=== PATIENT | female | born 1975 | race African-American/Black ===

== ENCOUNTER 2016-12-10 22:24 | Emergency (ER) | payer OTHER ==
[~2016-12-10] VITALS: Ht 157.5 cm; Wt 71.2 kg
[~2016-12-10 22:24] MED LIST: GING1CAP PO
[2016-12-10 22:26] VITALS: TEMP 37; Ht 157.5 cm; Wt 71.2 kg
[2016-12-10] MEDS ORDERED: PROCHLORPERAZINE 5 MG/ML 2 ML VIAL IV STA (22:43)
[2016-12-10] MEDS ORDERED: LORAZEPAM 2 MG/ML 1 ML VIAL IV STA (22:43)
[2016-12-10] MEDS ORDERED: DiphenhydrAMINE HCL 50 MG/ML VIAL IV STA (22:43)
[2016-12-10] MEDS ORDERED: KETOROLAC TROMETHAMINE 30 MG/ML VIAL IV STA (22:43)
[2016-12-10] MEDS ORDERED: HYDROXYCUT PO (22:45)
[2016-12-10] MEDS ORDERED: SODIUM CHLORIDE 0.9% 1000ML 1,000 ML IV ONE (22:45)
[2016-12-10 23:06] LABS: BASO % 0.1 %; BASO ABS # 0.02 K/uL (0-0.2); COMPLETE YES; EOS % 1.2 %; HEMATOCRIT 38.2 % (37-47); IG% 0.3 %; LYMPH % 19.2 %; MEAN CELL VOLUME 83.4 fL (80-100); MEAN CORPUSCULAR HEMOGLOBIN 29.3 pg (25-34); MEAN CORPUSCULAR HGB CONC 35.1 g/dl (32-36); MEAN PLATELET VOLUME 10.3 fL (7.4-10.4); NEUT % 72.2 %; PLATELET COUNT 230 K/uL (130-400); RED BLOOD COUNT 4.58 M/uL (4.2-5.4); WHITE BLOOD COUNT 13.57 K/uL (4.8-10.8)
[2016-12-10 23:25] LABS: BUN/CREATININE RATIO 36.7 (10-20); CALCIUM 8.5 mg/dl (8.5-10.1); CREATININE 0.69 mg/dl (0.60-1.20); POTASSIUM 3.6 mmol/L (3.5-5.1)
[2016-12-10 23:32] LABS: URINE APPEARANCE CLEAR (CLEAR); URINE BILIRUBIN NEG (NEG); URINE COLOR YELLOW; URINE EPITHELIAL CELL AUTO >30 /lpf (0-5); URINE NITRITE NEG (NEG); URINE PH 5.5 (4.5-7.5); URINE SPECIFIC GRAVITY 1.019 (1.000-1.030); UROBILINOGEN NEG (NEG); ZZUR CULT IF INDIC CLEAN CATCH YES
[2016-12-10 23:36] LABS: MANUAL MICROSCOPIC REQUIRED? NO; REVIEW REQ? NO
[2016-12-11] MEDS ORDERED: AMOX875T PO (00:52)
[2016-12-11] MEDS ORDERED: AMOXICIL/CLAVU 875MG HOME PACK PO ONE (01:00)
[2016-12-11 01:06] VITALS: BP 114/64; PULSE 70; O2SAT 99
--- NOTE | 2016-12-11 02:45 | EMERGENCY ROOM VISIT NOTE ---
History First contact with patient: 22:34 Chief Complaint: HEADACHE Stated Complaint: HEADACHES, BODY ACHES FOR ABOUT A WEEK History of Present Illness The patient is a 41 year old female who presents to the Emergency Room with complaints of headache, left-sided facial pain, and body aches for the past 7 days. The patient has not had fever or chills. She does not have a history of migraine, and states that her symptoms will slightly improved with over-the- counter ibuprofen and Tylenol. She does not have neck or chest pain. No difficulty breathing or rash. She considers herself usually healthy but rates her current discomfort an 8/10. Review of Systems More than 10 systems were reviewed and otherwise negative with the exception of history of present illness. Past Medical/Surgical History No chronic medical disease Family History No pertinent family history Social History Smoking Status: Never Smoker Housing Status: lives with family Current/Historical Medications Scheduled Amoxicillin & Pot Clavulanate (Augmentin 875-125 mg), 1 TAB PO BID Keeley (Zingiber Officinalis) (Keeley), 1 TAB PO QAM [Hydroxycut], 1 DOSE PO UD Allergies Coded Allergies: No Known Allergies (Unverified , 12/02/16) Physical Exam Vital Signs Date Time Temp Pulse Resp B/P Pulse Ox O2 Delivery O2 Flow Rate FiO2 12/11/16 01:06 70 20 114/64 99 12/11/16 00:14 96 18 122/72 99 Room Air 12/10/16 23:16 66 18 104/80 97 Room Air 12/10/16 22:26 37.0 74 18 119/76 98 Room Air Pain Rating (0-10): 0 Physical Exam VITALS: Vitals are noted on the nurse's note and reviewed by myself. Vital signs stable. GENERAL: Well-developed, well-nourished, female, who is in no acute distress and resting comfortably. Patient is cooperative with the examination. HEAD: Normocephalic atraumatic. EARS: External ear normal. External auditory canals clear, tympanic membranes pearly wilkerson without erythema or effusion bilaterally. EYES: Pupils equal round and reactive to light and accommodation. Conjunctivae without injection, sclerae without icterus. Extraocular movements intact. NOSE: Patent, turbinates without inflammation or discharge. MOUTH: Mucous membranes moist. Tonsils are not enlarged. Pharynx without erythema, blood, or exudate. Uvula midline. Airway patent. NECK: Supple without nuchal rigidity. No lymphadenopathy. No thyromegaly. Cervical spine is nontender. No meningismus. HEART: Regular rate and rhythm without murmurs gallops or rubs. LUNGS: Clear to auscultation bilaterally without wheezes, rales or rhonchi. No retractions or accessory muscle use. ABDOMEN: Positive normal bowel sounds x 4. Soft, nontender, without masses or organomegaly. No guarding or rebound tenderness. MUSCULOSKELETAL: No muscle atrophy, erythema, or edema noted. Full range of motion without joint tenderness in all extremities. NEURO: Patient was alert and oriented to person place and time. CN II through XII grossly intact. Medical Decision & Procedures ER Provider Diagnostic Interpretation: Preliminary Findings Only See Final Report For Complete Findings CT HEAD: No ICH, mass effect, or midline shift. Wilkerson-white differentiation preserved. No evidence of skull fracture. Bilateral ethmoid and right maxillary sinusitis. Clear mastoid air cells. Laboratory Results 12/10/16 22:50 Red Blood Count 4.58, Mean Corpuscular Volume 83.4, Mean Corpuscular Hemoglobin 29.3, Mean Corpuscular Hemoglobin Concent 35.1, Mean Platelet Volume 10.3, Neutrophils (%) (Auto) 72.2, Lymphocytes (%) (Auto) 19.2, Monocytes (%) (Auto) 7.0, Eosinophils (%) (Auto) 1.2, Basophils (%) (Auto) 0.1, Neutrophils # (Auto) 9.80, Lymphocytes # (Auto) 2.60, Monocytes # (Auto) 0.95, Eosinophils # (Auto) 0.16, Basophils # (Auto) 0.02 12/10/16 22:50 Test 12/10/16 22:50 12/10/16 23:19 White Blood Count 13.57 K/uL (4.8-10.8) Red Blood Count 4.58 M/uL (4.2-5.4) Hemoglobin 13.4 g/dL (12.0-16.0) Hematocrit 38.2 % (37-47) Mean Corpuscular Volume 83.4 fL (80-100) Mean Corpuscular Hemoglobin 29.3 pg (25-34) Mean Corpuscular Hemoglobin Concent 35.1 g/dl (32-36) Platelet Count 230 K/uL (130-400) Mean Platelet Volume 10.3 fL (7.4-10.4) Neutrophils (%) (Auto) 72.2 % Lymphocytes (%) (Auto) 19.2 % Monocytes (%) (Auto) 7.0 % Eosinophils (%) (Auto) 1.2 % Basophils (%) (Auto) 0.1 % Neutrophils # (Auto) 9.80 K/uL (1.4-6.5) Lymphocytes # (Auto) 2.60 K/uL (1.2-3.4) Monocytes # (Auto) 0.95 K/uL (0.11-0.59) Eosinophils # (Auto) 0.16 K/uL (0-0.5) Basophils # (Auto) 0.02 K/uL (0-0.2) RDW Standard Deviation 40.4 fL (36.4-46.3) RDW Coefficient of Variation 13.4 % (11.5-14.5) Immature Granulocyte % (Auto) 0.3 % Immature Granulocyte # (Auto) 0.04 K/uL (0.00-0.02) Anion Gap 9.0 mmol/L (3-11) Est Creatinine Clear Calc Drug Dose 98.2 ml/min Estimated GFR () 124.4 Estimated GFR (Non- 107.4 BUN/Creatinine Ratio 36.7 (10-20) Calcium Level 8.5 mg/dl (8.5-10.1) Total Bilirubin 0.6 mg/dl (0.2-1) Aspartate Amino Transf (AST/SGOT) 18 U/L (15-37) Alanine Aminotransferase (ALT/SGPT) 31 U/L (12-78) Alkaline Phosphatase 64 U/L (45-117) Total Protein 7.7 gm/dl (6.4-8.2) Albumin 3.8 gm/dl (3.4-5.0) Globulin 3.9 gm/dl (2.5-4.0) Albumin/Globulin Ratio 1.0 (0.9-2) Urine Color YELLOW Urine Appearance CLEAR (CLEAR) Urine pH 5.5 (4.5-7.5) Urine Specific Egnar 1.019 (1.000-1.030) Urine Protein NEG (NEG) Urine Glucose (UA) NEG (NEG) Urine Ketones NEG (NEG) Urine Occult Blood NEG (NEG) Urine Nitrite NEG (NEG) Urine Bilirubin NEG (NEG) Urine Urobilinogen NEG (NEG) Urine Leukocyte Esterase SMALL (NEG) Urine WBC (Auto) 10-30 /hpf (0-5) Urine RBC (Auto) 0-4 /hpf (0-4) Urine Hyaline Casts (Auto) 1-5 /lpf (0-5) Urine Epithelial Cells (Auto) >30 /lpf (0-5) Urine Bacteria (Auto) 1+ (NEG) Urine Test NEG (NEG) Medications Administered Medications (Trade) Dose Ordered Sig/Fox Route Start Time Stop Time Status Last Admin Dose Admin Sodium Chloride (Nss 1000ml) 1,000 ml @ 999 mls/hr Q1H1M ONCE IV 12/10/16 22:45 12/10/16 23:45 DC 12/10/16 23:09 999 MLS/HR Diphenhydramine HCl (Benadryl Inj) 25 mg NOW STAT IV 12/10/16 22:43 12/10/16 22:45 DC 12/10/16 23:10 25 MG Prochlorperazine Edisylate (Compazine Inj) 5 mg NOW STAT IV 12/10/16 22:43 12/10/16 22:45 DC 12/10/16 23:14 5 MG Ketorolac Tromethamine (Toradol Inj) 30 mg NOW STAT IV 12/10/16 22:43 12/10/16 22:45 DC 12/10/16 23:11 30 MG Lorazepam (Ativan Inj) 0.5 mg NOW STAT IV 12/10/16 22:43 12/10/16 22:45 DC 12/10/16 23:12 0.5 MG Amoxicillin/ Clavulanate Potassium (Augmentin 875MG Home Pack) 1 homepack UD ONCE PO 12/11/16 01:00 12/11/16 01:01 DC 12/11/16 01:03 1 HOMEPACK ED Course Physical exam and history were performed. Nursing notes and EMR were reviewed. Patient appears to have headache symptoms for the past week. The patient does not appear toxic on exam. She is without evidence of meningitis or encephalitis. She has not had previous imaging of her head, and is not a chronic migraine patient. IV access was established and labs were obtained. The patient was medicated and hydrated as above. CT scan of the head was performed. The patient blood work is as above and was reviewed. She does have a very slightly elevated white blood cell count. She is not grossly anemic or with significant electrolyte imbalance. Her CT scan does not show evidence of acute intracranial hemorrhage, but does reveal a sinusitis, which is felt to be the likely cause of her symptoms. Overall the patient had significant improvement of her symptoms after the above medications. She will be started on Augmentin for her sinus infection. I recommended the patient follow with her primary care physician this week for further care and management. She was otherwise invited back to the ER with any new, worsening, or concerning symptoms. The chart was completed utilizing [employer] Speech Voice Recognition Software. Grammatical errors, random word insertions, pronoun errors, and incomplete sentences are an occasional consequence of this system due to software limitations, ambient noise, and hardware issues. Any formal questions or concerns about the content, text, or information contained within the body of this dictation should be directly addressed to the provider for clarification. . Medical Decision The differential diagnosis includes, but is not limited to: acute intracranial bleed, meningitis, encephalitis, mass or mass effect, sinusitis, infection, tumor, headache, temporal arteritis and carbon monoxide exposure, and migraine. Impression Primary Impression: Acute sinusitis Additional Impression: Headache Departure Information Dispostion Home / Self-Care Condition GOOD Prescriptions Amoxicillin & Pot Clavulanate (Augmentin 875-125 mg) 1 Tab Tab 1 TAB PO BID for 9 Days, #18 TAB Prov: Kevin Ramos PA-C 12/11/16 Forms HOME CARE DOCUMENTATION FORM, IMPORTANT VISIT INFORMATION Patient Instructions My [facility] Additional Instructions You were seen and evaluated today on an emergency basis only. This is not a substitute for, or an effort to provide, complete comprehensive medical care. It is not possible to recognize and treat all injuries or illnesses in a single emergency department visit. For this reason it is recommended that you followup with your primary care physician this week for ongoing care and evaluation. For baseline pain relief you may alternate ibuprofen and acetaminophen every 4 hours for pain control. Take 600 mg ibuprofen (Advil) and then 4 hours later take 1000 mg acetaminophen (Tylenol). Do not take more than 3000 mg acetaminophen in a single day. Amoxicillin Clavulanate (Augmentin) 875mg: Take one pill twice daily for 10 total days for your infection. All antibiotics can cause diarrhea. If this occurs and you feel worse or it does not resolve in 1-2 days follow up with your doctor or return to the Emergency Department as this could be signs of serious underlying problems. Any medication can cause an allergic reaction, stop the pills immediately and return to the ER for rash, hives, breathing difficulties, or swelling. You are welcome to return to the emergency department anytime with new, worsening, or concerning symptoms. Problem Qualifiers
--- NOTE | 2016-12-11 06:35 | DIAGNOSTIC IMAGING REPORT ---
HEAD CT NONCONTRAST CT DOSE: 537.48 mGy.cm HISTORY: Headache Migraine TECHNIQUE: Multiaxial CT images of the head were performed without the use of intravenous contrast. Comparison: None. Findings: Right maxillary sinusitis The calvarium and skull base are intact. The ventricles and sulci are within normal limits. There is no mass, hematoma, midline shift, or acute infarct. Impression: No acute intracranial abnormality. Right maxillary sinusitis Electronically signed by: Dashawn Clements M.D. 12/11/2016 6:33 AM Dictated Date/Time: 12/11/2016 6:33 AM
[2016-12-23] MEDS ORDERED: OXYC-57 PO (08:14)
== END 2016-12-11 01:07 | disposition home or self-care (01) ==
LOC: C.EDB 22:26 → C.EDA 12-11 01:07
DX: J01.90 Acute sinusitis, unspecified (principal); R51 Headache

== ENCOUNTER → 2016-12-23 | Day surgery (SDC) | payer OTHER ==
[2016-12-02 10:37] VITALS: Ht 157.5 cm; Wt 68.2 kg
[2016-12-20 14:43] LABS: BASO % 0.2 %; BASO ABS # 0.03 K/uL (0-0.2); COMPLETE YES; EOS % 1.8 %; HEMATOCRIT 40.3 % (37-47); IG% 0.3 %; LYMPH % 19.7 %; LYMPH ABS # 2.56 K/uL (1.2-3.4); MEAN CORPUSCULAR HEMOGLOBIN 29.2 pg (25-34); MEAN CORPUSCULAR HGB CONC 34.7 g/dl (32-36); MEAN PLATELET VOLUME 10.2 fL (7.4-10.4); MONO % 4.6 %; NEUT % 73.4 %; PLATELET COUNT 277 K/uL (130-400); WHITE BLOOD COUNT 13.01 K/uL (4.8-10.8)
[~2016-12-23] VITALS: Ht 157.5 cm; Wt 68.2 kg
[~2016-12-23] MED LIST changes: +AMOX875T PO; +ATROPINE SULFATE 0.1 MG/ML 5ML SYR IV PRN; +BUPIVACAINE 0.25% 2.5MG/ML PF 10 ML VIAL INFIL ONE; +DEXAMETHASONE SOD INJ 4 MG/ML VIAL IV PRN; +DEXAMETHASONE SOD INJ 4 MG/ML VIAL ONE; +EpHEDrine SULFATE INJ 50 MG/ML AMP IV PRN; +FENTANYL CITRATE INJ 50 MCG/1 ML 2 ML VIAL IV PRN; +FENTANYL CITRATE INJ 50 MCG/1 ML 2 ML VIAL ONE; +GLYCOPYRROLATE INJ 0.2 MG/ML VIAL ONE; +HYDROXYCUT PO; +IBUPROFEN 600 MG TAB PO PRN; +KETOROLAC TROMETHAMINE 30 MG/ML VIAL IV. PRN; +KETOROLAC TROMETHAMINE 30 MG/ML VIAL ONE; +LABETALOL HCL IV 5 MG/ML 20ML IV PRN; +LACTATED RINGER'S 1000ML 1,000 ML IV SCH; +LIDOCAINE HCL 2% 2 ML VIAL (20MG/ML) ONE; +METOCLOPRAMIDE HCL INJ 5 MG/ML 2 ML VIAL IV PRN; +MIDAZOLAM HCL 1 MG/ML 2ML VIAL ONE; +MoRPHine SULFATE 10 MG/ML CARP/VIAL IV PRN; +NEOSTIGMINE METHYLSULFATE 5 MG/5 ML SYR ONE; +ONDANSETRON INJ 2 MG/ML 2 ML VIAL IV PRN; +ONDANSETRON INJ 2 MG/ML 2 ML VIAL ONE; +OXYC-57 PO; +OXYCODONE/ACETAMINOPHEN 5-325 TAB PO PRN; +PHENYLEPHRINE 100MCG/ML 5ML SYR IV PRN; +PROMETHAZINE HCL INJ 25 MG in SODIUM CHLORIDE 0.9% 50ML 50 ML IV PRN; +PROPOFOL IV EMULSION 10 MG/ML 20 ML VIAL IV ONE; +ROCURONIUM BROMIDE 10 MG/ML 5 ML VIAL ONE; +SODIUM CHLORIDE 0.9% 1000ML 1,000 ML IV SCH
--- NOTE | 2016-12-23 06:57 | History & Physical Bridge - SC ---
H&P Re-Evaluation Bridge Note: I have examined the patient, reviewed the History & Physical and in the interval since the performance of the History & Physical I have noted the following changes of clinical significance: No changes noted
--- NOTE | 2016-12-23 08:11 | [facility] Post Operative Brief Note ---
Immediate Operative Summary Operative Date Dec 23, 2016. Pre-Operative Diagnosis Desires sterilization, h/o x4 Post-Operative Diagnosis same Procedure(s) Performed [facility] Surgeon Dr Ding Outpatient Coder Surgeon(s) 0 Estimated Blood Loss 5 ml Findings Normal appearing uterus, tubes, ovaries. Omental-peritoneal adhesive disease. Appendix not easily visualized. Due to adhesive disease, liver/gallbladder not visualized. Specimens 0 Drains jensen, clear yellow Complication(s) None Disposition Recovery Room / PACU
--- NOTE | 2016-12-23 08:16 | Discharge Instructions-SurgCtr ---
Discharge Instructions Date of Service Dec 23, 2016. Visit Reason for Visit: Contraceptive Management Discharge Discharge Diagnosis / Problem: s/p laparoscopic tubal ligation Discharge Goals Goal(s): Therapeutic intervention Activity Recommendations Activity Limitations: per Instructions/Follow-up section Anesthesia . Post Anesthesia Instructions: If you have had General Anesthesia or IV Sedation: * Do not drive today. * Resume driving when surgeon permits. * Do not make important decisions or sign legal documents today. * Call surgeon for: 1. Temperature elevations greater than 101 degrees F. 2. Uncontrollable pain. 3. Excessive bleeding. 4. Persistent nausea and vomiting. 5. Medication intolerance (nausea, vomiting or rash). * For nausea and vomiting use only clear liquids such as: tea, soda, bouillon until nausea subsides, then gradually increase diet as tolerated. * If you have any concerns or questions, call your surgeon's office. If physician is unavailable and it is an emergency, call 911 or go to the nearest emergency room. . Instructions / Follow-Up Instructions / Follow-Up ACTIVITY RECOMMENDATIONS: * Rest the first 2-3 days. You should be back to your normal activity levels by day 3. * No heavy lifting for 2 weeks. * No intercourse, tampons or douching for 1-2 weeks. * You may shower the next day. * Do not drive anytime that you are taking narcotic pain medicines. RETURN TO SCHOOL/WORK: * May return to school or work after 2-3 days. DIET: Nausea may occur in the immediate post-operative period. If so, take clear liquids such as tea, bouillon, apple juice until all nausea has subsided, then resume usual diet. MEDICATIONS: Resume previous medications unless instructed otherwise by your surgeon. Ibuprofen 200mg 2-3 tablets every 4-6 hours as needed -- OR -- Aleve 2 tablets every 8-12 hours as needed for post-operative discomfort Medications are over the counter. Tylenol may be used if above medications are contraindicated or not preferred. Medication should be taken with food or milk. Do not take on an empty stomach. SPECIAL CARE INSTRUCTIONS: * Check temperature twice daily for one week. report any elevation over 101 degrees. * You may experience some vagina spotting and/or bleeding. This is normal for 1 -2 weeks and should not be heavier than a normal period. If it is unusual in amount, call your physician. * Post-operative discomfort may consist of a sore throat, a "bloated" feeling and pain in the shoulders. these are normal symptoms, which usually only last for 2-3 days. * Remove band-aids tomorrow and shower. There is no need to replace band-aids unless there is drainage or discomfort. FOLLOW UP VISIT: Call your doctor's office for a post-operative 2 week visit if not already scheduled. Diet Recommendations Home Diet: resume previous diet Procedures Procedures Performed: Laparoscopic Tubal Ligation [employer] Tubal ligation system Pending Studies Studies pending at discharge: no Medical Emergencies . Who to Call and When: Medical Emergencies: If at any time you feel your situation is an emergency, please call 911 immediately. . Non-Emergent Contact Non-Emergency issues call your: Primary Care Provider, Logistics Administrator . . "Provider Documentation" section prepared by Karen Ding. PA Drug Monitoring Program Search Results: patient reviewed within database
--- NOTE | 2016-12-23 08:54 | OPERATIVE REPORT ---
DATE OF OPERATION: 12/23/2016 PREOPERATIVE DIAGNOSIS: Desires sterilization, history of section x4. POSTOPERATIVE DIAGNOSIS: Same. PROCEDURE PERFORMED: Laparoscopic tubal ligation with Filshie clips. SURGEON: Dr. Ding. HOSPITAL SOCIAL WORKER: None. ESTIMATED BLOOD LOSS: 5 mL FINDINGS: Normal appearing uterus, tubes, and ovaries. Omental peritoneal adhesive disease noted. Appendix was not easily visualized due to adhesive disease. Liver and gallbladder were not visualized. SPECIMENS: None. DRAINS: Turcios, clear yellow. COMPLICATIONS: None. DISPOSITION: Stable and good to recovery room in PACU. INDICATIONS FOR PROCEDURE: The patient is a 41-year-old G7, P5-0-2-5 with history of section x2, who desires permanent sterilization. She elected tubal ligation as her method of sterilization. DESCRIPTION OF PROCEDURE: The patient was seen in the preoperative holding area, where risks, benefits, alternatives were reviewed and all questions were answered to patient's satisfaction. She had previously signed informed consent in the office under no duress and this was reviewed at the time of preoperative care. She elected to proceed with surgery. She was taken to the operating room where general anesthesia was administered. She was prepared and draped in the usual sterile fashion with feet in [facility]. The timeout was called and confirmed. First, a Turcios catheter was placed in the bladder with clear yellow urine return. Next, a weighted speculum was placed in the vagina and cervix was visualized and the anterior lip was grasped with a single tooth tenaculum. An acorn uterine manipulator was placed. Gloves were changed and attention was then turned to the abdomen, where an infraumbilical incision was made and carried down to the layer of the fascia with blunt dissection. The fascia was grasped with Asif clamps x2, elevated and the fascial incision was made with a scalpel. The omentum was visualized through the incision. The Diana trocar was placed and the camera was placed to ensure intra-abdominal placement and the abdomen was insufflated with gas. The abdomen was visualized with the above noted findings. An 8-mm laparoscopic trocar was placed in the infraumbilical location under direct visualization. The left fallopian tube was visualized, the fimbriae were noted to ensure correct anatomical placement and the Filshie clip was placed on the isthmic region of the tube. The same procedure was performed on the right fallopian tube, ensuring that fimbriae were noted to ensure placement on the fallopian tubes. Pictures were taken. The trocar sites were removed under direct visualization. Fascia was closed with 0 Vicryl and the skin was reapproximated using 4-0 Vicryl in a subcuticular fashion. The patient tolerated the procedure well. All instruments were removed from the vagina. The patient was then taken to the recovery room in stable and good condition. I attest to the content of the Intraoperative Record and any orders documented therein. Any exceptio ns are noted below.
[2016-12-23 09:10] VITALS: TEMP 36.5
--- NOTE | 2016-12-23 09:42 | Anesthesia Progress Nt - [facility] ---
Anesthesia Post Op Note Date & Time Dec 23, 2016 at 09:42 Vital Signs Pain Intensity: 6.0 Vital Signs Past 12 Hours Date Time Temp Pulse Resp B/P Pulse Ox O2 Delivery O2 Flow Rate FiO2 12/23/16 09:10 36.5 49 16 139/81 100 Room Air 12/23/16 09:05 132/81 12/23/16 09:03 49 18 97 12/23/16 09:03 50 18 12/23/16 09:00 130/93 12/23/16 08:58 48 16 97 12/23/16 08:58 48 16 12/23/16 08:57 53 13 12/23/16 08:57 53 13 97 12/23/16 08:56 63 16 97 12/23/16 08:56 61 16 12/23/16 08:55 129/80 12/23/16 08:54 36.6 98 Room Air 12/23/16 08:51 56 17 12/23/16 08:51 55 17 100 12/23/16 08:50 149/94 12/23/16 08:46 56 16 12/23/16 08:46 56 16 100 12/23/16 08:45 141/90 12/23/16 08:41 62 18 12/23/16 08:41 61 18 100 12/23/16 08:40 133/92 12/23/16 08:36 59 16 100 12/23/16 08:36 59 16 12/23/16 08:35 149/97 12/23/16 08:31 72 12 12/23/16 08:31 69 12 100 12/23/16 08:30 134/97 12/23/16 08:26 98 18 100 12/23/16 08:26 98 18 12/23/16 08:25 133/83 12/23/16 08:21 94 5 142/90 100 12/23/16 08:21 36.2 92 18 142/90 99 Mask 6 12/23/16 08:21 94 5 12/23/16 06:34 37.1 67 18 115/75 97 Room Air Notes Mental Status: alert / awake / arousable, participated in evaluation Pt Amnestic to Procedure: Yes Nausea / Vomiting: adequately controlled Pain: adequately controlled Airway Patency, RR, SpO2: stable & adequate BP & HR: stable & adequate Hydration State: stable & adequate Anesthetic Complications: no major complications apparent
[2016-12-23 10:14] VITALS: BP 103/68; PULSE 64; O2SAT 97
== END | disposition home or self-care (01) ==
LOC: X.SURG 06:18
PROVIDERS: ATTEND Obstetrics & Gynecology
DX: Z30.2 Encounter for sterilization (principal); Z87.891 Personal history of nicotine dependence

== ENCOUNTER → 2017-06-18 | Outpatient (CLI) | payer OTHER ==
[~2017-06-18] MED LIST changes: -ATROPINE SULFATE 0.1 MG/ML 5ML SYR IV PRN; -BUPIVACAINE 0.25% 2.5MG/ML PF 10 ML VIAL INFIL ONE; -DEXAMETHASONE SOD INJ 4 MG/ML VIAL IV PRN; -DEXAMETHASONE SOD INJ 4 MG/ML VIAL ONE; -EpHEDrine SULFATE INJ 50 MG/ML AMP IV PRN; -FENTANYL CITRATE INJ 50 MCG/1 ML 2 ML VIAL IV PRN; -FENTANYL CITRATE INJ 50 MCG/1 ML 2 ML VIAL ONE; -GLYCOPYRROLATE INJ 0.2 MG/ML VIAL ONE; -IBUPROFEN 600 MG TAB PO PRN; -KETOROLAC TROMETHAMINE 30 MG/ML VIAL IV. PRN; -KETOROLAC TROMETHAMINE 30 MG/ML VIAL ONE; -LABETALOL HCL IV 5 MG/ML 20ML IV PRN; -LACTATED RINGER'S 1000ML 1,000 ML IV SCH; -LIDOCAINE HCL 2% 2 ML VIAL (20MG/ML) ONE; -METOCLOPRAMIDE HCL INJ 5 MG/ML 2 ML VIAL IV PRN; -MIDAZOLAM HCL 1 MG/ML 2ML VIAL ONE; -MoRPHine SULFATE 10 MG/ML CARP/VIAL IV PRN; -NEOSTIGMINE METHYLSULFATE 5 MG/5 ML SYR ONE; -ONDANSETRON INJ 2 MG/ML 2 ML VIAL IV PRN; -ONDANSETRON INJ 2 MG/ML 2 ML VIAL ONE; -OXYCODONE/ACETAMINOPHEN 5-325 TAB PO PRN; -PHENYLEPHRINE 100MCG/ML 5ML SYR IV PRN; -PROMETHAZINE HCL INJ 25 MG in SODIUM CHLORIDE 0.9% 50ML 50 ML IV PRN; -PROPOFOL IV EMULSION 10 MG/ML 20 ML VIAL IV ONE; -ROCURONIUM BROMIDE 10 MG/ML 5 ML VIAL ONE; -SODIUM CHLORIDE 0.9% 1000ML 1,000 ML IV SCH
[2017-06-18 10:14] LABS: HEMATOCRIT 41.8 % (37-47); MEAN CELL VOLUME 86.9 fL (80-100); MEAN CORPUSCULAR HEMOGLOBIN 29.7 pg (25-34); MEAN CORPUSCULAR HGB CONC 34.2 g/dl (32-36); MEAN PLATELET VOLUME 10.5 fL (7.4-10.4); PLATELET COUNT 205 K/uL (130-400); RED BLOOD COUNT 4.81 M/uL (4.2-5.4)
[2017-06-18 10:44] LABS: BLOOD UREA NITROGEN 16 mg/dl (7-18); BUN/CREATININE RATIO 21.8 (10-20); CALCIUM 8.9 mg/dl (8.5-10.1); CARBON DIOXIDE 24 mmol/L (21-32); CHLORIDE 109 mmol/L (98-107); CREATININE 0.71 mg/dl (0.60-1.20); GLUCOSE 75 mg/dl (70-99); POTASSIUM 3.9 mmol/L (3.5-5.1); SODIUM 140 mmol/L (136-145)
[2017-06-18 10:51] LABS: INSULIN FASTING 9.7 mU/L (3-25)
[2017-06-18 11:12] LABS: ESTIMATED AVERAGE GLUCOSE 100 mg/dl; HA1C FLAG Normal (Normal)
== END | disposition home or self-care (01) ==
LOC: C.LAB1850 09:01
PROVIDERS: ATTEND Family Medicine
DX: R53.83 Other fatigue (principal); E16.2 Hypoglycemia, unspecified; G56.02 Carpal tunnel syndrome, left upper limb

== ENCOUNTER 2017-06-28 18:23 | Emergency (ER) | payer OTHER ==
[~2017-06-28] VITALS: Ht 157.5 cm; Wt 75.6 kg
[~2017-06-28 18:23] MED LIST changes: -AMOX875T PO
[2017-06-28 18:26] VITALS: TEMP 36.9; Ht 157.5 cm; Wt 75.6 kg
[2017-06-28] MEDS ORDERED: BENZONATATE 100MG CAP PO ONE (18:45)
--- NOTE | 2017-06-28 19:16 | DIAGNOSTIC IMAGING REPORT ---
CHEST 2 VIEWS ROUTINE HISTORY: 42 years-old Female COUGH acute cough with fever COMPARISON: None available TECHNIQUE: Frontal and lateral views of the chest FINDINGS: Cardiomediastinal and hilar silhouettes are within normal limits. No pneumothorax, pleural effusion, focal airspace consolidation or overt pulmonary edema. Bones of the chest are grossly intact. Upper abdomen is unremarkable. IMPRESSION: No acute cardiopulmonary process. The above report was generated using voice recognition software. It may contain grammatical, syntax or spelling errors. Electronically signed by: Tate Hermosillo M.D. 06/28/2017 7:15 PM Dictated Date/Time: 06/28/2017 7:14 PM
[2017-06-28] MEDS ORDERED: AMOX875T PO (19:38)
[2017-06-28] MEDS ORDERED: AMOXICILLIN/CLAVULANATE TAB 875 MG TAB PO ONE (19:45)
[2017-06-28 19:50] VITALS: BP 106/69; PULSE 74; O2SAT 98
--- NOTE | 2017-06-28 20:25 | EMERGENCY ROOM VISIT NOTE ---
History Report prepared by Luca: Sasha Kelley Under the Supervision of: Dr. Horacio Blanc D.O. First contact with patient: 18:30 Chief Complaint: HEADACHE Stated Complaint: BODY ACHE, HEADACHE, NASAL CONGESTION History of Present Illness The patient is a 42 year old female who presents to the Emergency Room with complaints of a constant illness beginning 4 days ago. The patient states that 4 days ago she developed a cough a runny nose and notes that she has had production of white phlegm. She reports that today she started having a sharp headache. She complains of body aches, ear pain, and congestion and notes that she works at the [employer] and may have had sick contacts. The patient denies any fever, abdominal pain, nausea, vomiting, and diarrhea. Source of History: patient Onset: 4 days ago Position: other (global) Quality: other (illness) Timing: constant Associated Symptoms: No fevers, No nausea, No vomiting, No abdominal pain, No diarrhea Note: She complains of body aches, ear pain, and congestion. Review of Systems See HPI for pertinent positives & negatives. A total of 10 systems reviewed and were otherwise negative. Past Medical & Surgical Medical Problems: (1) Headache Family History No pertinent family history stated. Social History Smoking Status: Never Smoker Housing Status: lives with family Current/Historical Medications Scheduled Amoxicillin & Pot Clavulanate (Augmentin 875-125 mg), 875 MG PO BID Allergies Coded Allergies: No Known Allergies (Unverified , 12/23/16) Physical Exam Vital Signs Date Time Temp Pulse Resp B/P (MAP) Pulse Ox O2 Delivery O2 Flow Rate FiO2 06/28/17 19:50 74 16 106/69 98 06/28/17 18:26 36.9 71 18 113/78 98 Room Air Physical Exam GENERAL: sitting up in bed, alert, well appearing, well nourished, no distress, non-toxic EYE EXAM: normal conjunctiva, PERRL and EOM's intact OROPHARYNX: no exudate, no erythema, lips, buccal mucosa, and tongue normal and mucous membranes are moist EARS: TMs clear bilaterally NOSE: Clear rhinorrhea bilaterally NECK: supple, no nuchal rigidity, no adenopathy, non-tender, negative Brudzinski LUNGS: Clear to auscultation. Normal chest wall mechanics. Dry nonproductive cough HEART: no murmurs, S1 normal and S2 normal ABDOMEN: abdomen soft, non-tender, normo-active bowel sounds, no masses, no rebound or guarding. BACK: Back is symmetrical on inspection and there is no deformity, no midline tenderness, no CVA tenderness. SKIN: no rashes and no bruising UPPER EXTREMITIES: upper extremities are grossly normal. LOWER EXTREMITIES: No pitting edema. NEURO EXAM: Normal sensorium, cranial nerves II-XII grossly intact, normal speech, no gross weakness of arms, no gross weakness of legs. Ambulates without difficulty Medical Decision & Procedures ER Provider Diagnostic Interpretation: Radiology results as stated below per my review and the radiologist's interpretation: CHEST 2 VIEWS ROUTINE FINDINGS: Cardiomediastinal and hilar silhouettes are within normal limits. No pneumothorax, pleural effusion, focal airspace consolidation or overt pulmonary edema. Bones of the chest are grossly intact. Upper abdomen is unremarkable. IMPRESSION: No acute cardiopulmonary process. The above report was generated using voice recognition software. It may contain grammatical, syntax or spelling errors. Electronically signed by: Tate Hermosillo M.D. 06/28/2017 7:15 PM Dictated Date/Time: 06/28/2017 7:14 PM Medications Administered Medications (Trade) Dose Ordered Sig/Fox Route Start Time Stop Time Status Last Admin Dose Admin Benzonatate (Tessalon Perles Cap) 100 mg NOW ONCE PO 06/28/17 18:45 06/28/17 18:46 DC 06/28/17 18:51 100 MG Amoxicillin/ Clavulanate Potassium (Augmentin Tab) 875 mg ONE ONCE PO 06/28/17 19:45 06/28/17 19:46 DC 06/28/17 19:49 875 MG ED Course ED COURSE: Vital signs were reviewed and normal The patients medical record was reviewed The above diagnostic studies were performed and reviewed. ED treatments and interventions as stated above. 0: The patient was evaluated in room C2. A complete history and physical examination was performed. 1844: Benzonatate 100mg PO. 1944: Augmentin Tab 875mg PO. 1947: Upon reevaluation, the patient is doing well.I discussed my findings with the patient and she understands and agrees with the treatment plan. Based on the patients age, coexisting illnesses, exam and lab findings the decision to treat as an outpatient was made. The patient remained stable while under my care. The patient appeared well at the time of discharge. Medical Decision Differential diagnosis: Etiologies such as viral syndrome, otitis, pharyngitis, pneumonia, influenza, meningitis, urinary tract infection, sepsis, bacteremia, as well as others were entertained. Patient is a 42-year-old female who presents to ER with a 3 to four-day history of a cough, runny nose and congestion. She is also complaining of mild headache. No fevers greater than 100.4. No signs of meningitis or encephalitis on exam. No nuchal rigidity. Lungs were clear. Chest x-ray unremarkable. She does complain of frontal headache which I favor is secondary to her sinuses. With her symptoms, she was treated as a bronchitis/sinusitis placed on Augmentin and discharged to follow-up with PCP as she was well- appearing with normal vitals. Discussed with Pt concerning signs and symptoms to watch out for. Pt was instructed to follow up with their PCP and discussed with the patient their option to return to the ED at anytime for persistent or worsening symptoms. The appropriate anticipatory guidance and out-patient management, including indications for return to the emergency department, were explained at length to the patient and understood. Medication Reconcilliation Current Medication List: was personally reviewed by me Blood Pressure Screening Patient's blood pressure: Normal blood pressure Blood pressure disposition: Did not require urgent referral Impression Primary Impression: Bronchitis Scribe Attestation The scribe's documentation has been prepared under my direction and personally reviewed by me in its entirety. I confirm that the note above accurately reflects all work, treatment, procedures, and medical decision making performed by me. Departure Information Dispostion Home / Self-Care Prescriptions Amoxicillin & Pot Clavulanate (Augmentin 875-125 mg) 1 Tab Tab 875 MG PO BID for 7 Days, TAB Prov: Horacio Blanc, DO 06/28/17 Referrals No Doctor, Assigned (PCP) Forms HOME CARE DOCUMENTATION FORM, IMPORTANT VISIT INFORMATION Patient Instructions ED Upper Resp Infec x Kendy Vang [facility] Additional Instructions Please follow up with your primary care doctors with in the next 24 hours. Any worsening of your symptoms, please return to the ED immediately. This includes any fevers greater than 100.4, worsening pain, chest pain, shortness breath, persistent nausea, vomiting, unable to eat or drink, or any other concerning signs or symptoms from your standpoint.
== END 2017-06-28 19:55 | disposition home or self-care (01) ==
LOC: C.EDB 18:25 → C.EDC 19:55
DX: J40 Bronchitis, not specified as acute or chronic (principal); R51 Headache; R05 Cough

== ENCOUNTER 2017-10-26 07:47 | Emergency (ER) | payer OTHER ==
[~2017-10-26] VITALS: Ht 157.5 cm; Wt 75.7 kg
[2017-10-26 07:52] VITALS: TEMP 37.5; Ht 157.5 cm; Wt 75.7 kg
[2017-10-26] MEDS ORDERED: KETOROLAC TROMETHAMINE 30 MG/ML VIAL IV STA (08:10)
[2017-10-26] MEDS ORDERED: ONDANSETRON INJ 2 MG/ML 2 ML VIAL IV STA (08:10)
[2017-10-26] MEDS ORDERED: SODIUM CHLORIDE 0.9% 1000ML 2,000 ML IV STA (08:10)
--- NOTE | 2017-10-26 08:20 | EMERGENCY ROOM VISIT NOTE ---
History Report prepared by Luca: Velma Fernandez Under the Supervision of: Dr. Jourdan Granados M.D. First contact with patient: 07:59 Chief Complaint: NAUSEA Stated Complaint: NAUSEA,BODY ACHES,HEADACHE History of Present Illness The patient is a 42 year old female who presents to the Emergency Room with complaints of worsening body aches that began one day ago. The patient states that she has been nauseous and experiencing headaches. She notes that she has not taken any medication to relieve her symptoms. The patient reports that she has had a cough and left arm pain for several weeks now. The patient notes her last menstrual period was 3 weeks ago, and her pain radiates to her shoulder. She denies being on any medication on a regular basis or having any nasal congestion. The patient denies any urinary symptoms and being a smoker. Source of History: patient Onset: one day ago Position: other (global) Quality: other (body aches) Timing: worsening Associated Symptoms: + headache, + cough, + nausea Note: Associated symptoms include left arm pain that radiates to her shoulder. Review of Systems See HPI for pertinent positives and negatives. A total of ten systems were reviewed and were otherwise negative. Past Medical & Surgical Medical Problems: (1) Headache Family History Diabetes mellitus Hypertension Social History Smoking Status: Never Smoker Smokeless Tobacco Use: No Alcohol Use: none Drug Use: none Marital Status: Housing Status: lives with family Occupation Status: employed Current/Historical Medications Scheduled Ondasetron Odt (Zofran Odt), 4 MG SL Q6H Scheduled PRN Ibuprofen Tab (Motrin), 800 MG PO Q8H PRN for Pain Allergies Coded Allergies: No Known Allergies (Unverified , 10/26/17) Physical Exam Vital Signs Date Time Temp Pulse Resp B/P (MAP) Pulse Ox O2 Delivery O2 Flow Rate FiO2 10/26/17 09:44 81 18 102/71 100 10/26/17 08:52 54 109/73 99 Room Air 10/26/17 08:52 59 18 109/73 98 Room Air 10/26/17 07:52 37.5 65 18 123/76 97 Room Air Physical Exam GENERAL: Awake, alert, uncomfortable, in no distress HENT: Dry cracked mucous membranes. Normocephalic, atraumatic. Mild injection in posterior oropharynx, no edema. No tongue elevation or trismus. EYES: Normal conjunctiva. Sclera non-icteric. NECK: Supple. No nuchal rigidity. FROM. No JVD. RESPIRATORY: Clear to auscultation. CARDIAC: Regular rate and rhythm. Extremities warm and well perfused. Pulses equal. ABDOMEN: Soft, non-distended. No tenderness to palpation. No rebound or guarding. No masses. RECTAL: Deferred. MUSCULOSKELETAL: Chest examination reveals no tenderness. The back is symmetrical on inspection without obvious abnormality. There is no CVA tenderness to palpation. No joint edema. Mild reproducible ttp to left anterior shoulder with pain with active ROM and minimal pain with passive ROM. LOWER EXTREMITIES: Calves are equal size bilaterally and non-tender. No edema. No discoloration. NEURO: Normal sensorium. No sensory or motor deficits noted. SKIN: No rash or jaundice noted. Medical Decision & Procedures ER Provider Diagnostic Interpretation: Radiology results as stated below per my review and radiologist interpretation: CHEST ONE VIEW PORTABLE CLINICAL HISTORY: 42 years-old Female presenting with CHEST PAIN. TECHNIQUE: Portable upright AP view of the chest was obtained. COMPARISON: 06/28/2017. FINDINGS: Atherosclerosis of the aortic arch. Cardiac silhouette normal in size. Lungs and pleural spaces clear. Osseous structures normal. Upper abdomen normal. IMPRESSION: 1. No acute cardiopulmonary disease. Electronically signed by: Diogenes Leigh M.D. 10/26/2017 8:25 AM Dictated Date/Time: 10/26/2017 8:24 AM Laboratory Results 10/26/17 08:25 Red Blood Count 4.52, Mean Corpuscular Volume 87.6, Mean Corpuscular Hemoglobin 29.6, Mean Corpuscular Hemoglobin Concent 33.8, Mean Platelet Volume 10.4, Neutrophils (%) (Auto) 61.7, Lymphocytes (%) (Auto) 29.1, Monocytes (%) (Auto) 6.9, Eosinophils (%) (Auto) 1.9, Basophils (%) (Auto) 0.3, Neutrophils # (Auto) 4.23, Lymphocytes # (Auto) 1.99, Monocytes # (Auto) 0.47, Eosinophils # (Auto) 0.13, Basophils # (Auto) 0.02 10/26/17 08:25 Test 10/26/17 08:25 10/26/17 08:40 White Blood Count 6.85 K/uL (4.8-10.8) Red Blood Count 4.52 M/uL (4.2-5.4) Hemoglobin 13.4 g/dL (12.0-16.0) Hematocrit 39.6 % (37-47) Mean Corpuscular Volume 87.6 fL (80-100) Mean Corpuscular Hemoglobin 29.6 pg (25-34) Mean Corpuscular Hemoglobin Concent 33.8 g/dl (32-36) Platelet Count 225 K/uL (130-400) Mean Platelet Volume 10.4 fL (7.4-10.4) Neutrophils (%) (Auto) 61.7 % Lymphocytes (%) (Auto) 29.1 % Monocytes (%) (Auto) 6.9 % Eosinophils (%) (Auto) 1.9 % Basophils (%) (Auto) 0.3 % Neutrophils # (Auto) 4.23 K/uL (1.4-6.5) Lymphocytes # (Auto) 1.99 K/uL (1.2-3.4) Monocytes # (Auto) 0.47 K/uL (0.11-0.59) Eosinophils # (Auto) 0.13 K/uL (0-0.5) Basophils # (Auto) 0.02 K/uL (0-0.2) RDW Standard Deviation 45.0 fL (36.4-46.3) RDW Coefficient of Variation 14.1 % (11.5-14.5) Immature Granulocyte % (Auto) 0.1 % Immature Granulocyte # (Auto) 0.01 K/uL (0.00-0.02) Anion Gap 8.0 mmol/L (3-11) Est Creatinine Clear Calc Drug Dose 68.4 ml/min Estimated GFR () 79.0 Estimated GFR (Non- 68.1 BUN/Creatinine Ratio 23.6 (10-20) Calcium Level 8.4 mg/dl (8.5-10.1) Total Bilirubin 0.3 mg/dl (0.2-1) Direct Bilirubin < 0.1 mg/dl (0-0.2) Aspartate Amino Transf (AST/SGOT) 28 U/L (15-37) Alanine Aminotransferase (ALT/SGPT) 32 U/L (12-78) Alkaline Phosphatase 57 U/L (45-117) Troponin I < 0.015 ng/ml (0-0.045) Total Protein 7.1 gm/dl (6.4-8.2) Albumin 3.5 gm/dl (3.4-5.0) Lipase 132 U/L (73-393) Human Chorionic Gonadotropin, Qual NEG (NEG) Influenza Type A Antigen Neg for Influ A (NEG) Influenza Type B Antigen Neg for Influ B (NEG) Laboratory results reviewed by me Medications Administered Medications (Trade) Dose Ordered Sig/Fox Route Start Time Stop Time Status Last Admin Dose Admin Sodium Chloride 2,000 ml @ 999 mls/hr Q2H1M STAT IV 10/26/17 08:10 10/26/17 10:10 DC 10/26/17 08:49 999 MLS/HR Ondansetron HCl (Zofran Inj) 4 mg NOW STAT IV 10/26/17 08:10 10/26/17 08:15 DC 10/26/17 08:49 4 MG Ketorolac Tromethamine (Toradol Inj) 15 mg NOW STAT IV 10/26/17 08:10 10/26/17 08:15 DC 10/26/17 08:49 15 MG ECG Indication: nausea Rate (beats per minute): 53 Findings: no acute ischemic change, other (normal axis) Change: Patients electrocardiogram as interpreted by me. ED Course 0801: The patient was evaluated in room B6. A complete history and physical exam was performed. 0810: Ordered Toradol Inj 15mg IV, Zofran Inj 4mg IV, and Sodium Chloride 2000ml @ 999 mls/hr IV. 0919: I reevaluated the patient, who was resting comfortably. 1002: I reevaluated the patient. Discussed results and discharge instructions: She verbalized understanding and agreement. The patient is ready for discharge. Medical Decision I reviewed the patient's past medical history, medications, and the nursing notes as described above. The patient's presentation and history were concerning for URI, viral illness, influenza, pneumonia, bronchitis, pericarditis, myocarditis, gastroenteritis, and dehydration. The patient is a 42-year-old woman who presents emergency Department with body aches, headaches, nausea over the past several days but has not taken any medication per hpi. On arrival the patient is in no acute distress, afebrile with stable vital signs. The patient appears clinically dry. She has mild reproducible tenderness to the left anterior shoulder as well as increased pain with active range of motion and minimal pain with passive range of motion suggestive of rotator cuff injury. EKG unremarkable. Labs unremarkable including WBC and troponin within normal limits in the setting of several days of symptoms. BUN/Cr > 20 c/w with patient's clinically dry appearance. Flu negative. Patient feeling improved after IV fluids. Findings and plan for follow -up reviewed with patient. Patient agreeable and d/c'd per discharge instructions. Medication Reconcilliation Current Medication List: was personally reviewed by me Impression Primary Impression: Viral syndrome Scribe Attestation The scribe's documentation has been prepared under my direction and personally reviewed by me in its entirety. I confirm that the note above accurately reflects all work, treatment, procedures, and medical decision making performed by me. Departure Information Dispostion Home / Self-Care Prescriptions Ondasetron Odt (ZOFRAN ODT) 4 Mg Tab 4 MG SL Q6H for Nausea, #10 TAB Prov: Jourdan Granados M.D. 10/26/17 Ibuprofen Tab (MOTRIN) 800 Mg Tab 800 MG PO Q8H Y for Pain, #21 TAB Prov: Jourdan Granados M.D. 10/26/17 Referrals Wendy Norman MD (PCP) Forms HOME CARE DOCUMENTATION FORM, IMPORTANT VISIT INFORMATION Patient Instructions ED Viral Syndrome, [facility] Additional Instructions Please follow up with your primary care physician in the next 1-3 days for re- evaluation. You likely have a viral illness. Otherwise, your exam, EKG, chest xray, and lab results did not show signs of an emergent condition at this time. Acetaminophen or ibuprofen for pain and fevers as needed. Zofran as needed for nausea. Drink plenty of fluids to ensure hydration. Return to the emergency department for worsening symptoms as described in the accompanying instructions.
--- NOTE | 2017-10-26 08:26 | DIAGNOSTIC IMAGING REPORT ---
CHEST ONE VIEW PORTABLE CLINICAL HISTORY: 42 years-old Female presenting with CHEST PAIN. TECHNIQUE: Portable upright AP view of the chest was obtained. COMPARISON: 06/28/2017. FINDINGS: Atherosclerosis of the aortic arch. Cardiac silhouette normal in size. Lungs and pleural spaces clear. Osseous structures normal. Upper abdomen normal. IMPRESSION: 1. No acute cardiopulmonary disease. Electronically signed by: Diogenes Leigh M.D. 10/26/2017 8:25 AM Dictated Date/Time: 10/26/2017 8:24 AM
[2017-10-26 08:35] LABS: BASO % 0.3 %; BASO ABS # 0.02 K/uL (0-0.2); EOS % 1.9 %; EOS ABS # 0.13 K/uL (0-0.5); HEMATOCRIT 39.6 % (37-47); HEMOGLOBIN 13.4 g/dL (12.0-16.0); IG# 0.01 K/uL (0.00-0.02); LYMPH % 29.1 %; LYMPH ABS # 1.99 K/uL (1.2-3.4); MEAN CELL VOLUME 87.6 fL (80-100); MEAN CORPUSCULAR HEMOGLOBIN 29.6 pg (25-34); MEAN CORPUSCULAR HGB CONC 33.8 g/dl (32-36); MEAN PLATELET VOLUME 10.4 fL (7.4-10.4); MONO % 6.9 %; MONO ABS # 0.47 K/uL (0.11-0.59); NEUT % 61.7 %; NEUT ABS # 4.23 K/uL (1.4-6.5); PLATELET COUNT 225 K/uL (130-400); RED CELL DISTRIBUTION WIDTH CV 14.1 % (11.5-14.5); WHITE BLOOD COUNT 6.85 K/uL (4.8-10.8)
[2017-10-26 09:02] LABS: ALBUMIN 3.5 gm/dl (3.4-5.0); ALT/SGPT 32 U/L (12-78); BLOOD UREA NITROGEN 24 mg/dl (7-18); CALCIUM 8.4 mg/dl (8.5-10.1); CARBON DIOXIDE 22 mmol/L (21-32); CREATININE 1.01 mg/dl (0.60-1.20); GLUCOSE 127 mg/dl (70-99); LIPASE 132 U/L (73-393); POTASSIUM 3.7 mmol/L (3.5-5.1); SODIUM 140 mmol/L (136-145)
[2017-10-26 09:07] LABS: ALKALINE PHOSPHATASE 57 U/L (45-117); AST/SGOT 28 U/L (15-37); TOTAL PROTEIN 7.1 gm/dl (6.4-8.2)
[2017-10-26 09:11] LABS: INFLUENZA B ANTIGEN Neg for Influ B (NEG)
[2017-10-26] MEDS ORDERED: IBUP-1451 PO (09:17)
[2017-10-26] MEDS ORDERED: ONDA4TAB10 SL (09:18)
[2017-10-26 09:44] VITALS: BP 102/71; PULSE 81; O2SAT 100
== END 2017-10-26 09:45 | disposition home or self-care (01) ==
LOC: C.EDB 07:49
DX: B34.9 Viral infection, unspecified (principal); M25.512 Pain in left shoulder; Z83.3 Family history of diabetes mellitus; Z82.49 Family history of ischemic heart disease and other diseases of the circulatory system

== ENCOUNTER 2024-09-07 07:15 | Observation (INO) ==
--- NOTE | 2024-09-07 07:47 | Emergency Department Note ---
Impression & Plan Hypoxia, Flu-like symptoms, Anemia, Lung nodule ED Provider Note CHIEF COMPLAINT: "I don't feel good" HISTORY OF PRESENT ILLNESS: This 49-year-old female patient presents to the emergency department via private vehicle independent for evaluation of "I do not feel good". The patient states starting yesterday, she developed cough, congestion, runny nose, body aches, and chills. She states there is chest pain with coughing and deep breathing. She denies productive cough of blood or sputum. She denies any associated shortness of breath or wheezing. She denies any nausea, vomiting, diarrhea. Patient reports chills but has not checked her temperature. No abdominal pain. She has taken no medication for her symptoms. She did not get a flu vaccine this year and states "I don't want one". The patient denies any chronic medical conditions. She denies contacts who have been sick with similar symptoms. Last menstrual period was 08/23/2024 and was normal for her. No abnormal vaginal bleeding or discharge. No dysuria, urinary frequency, urinary hesitancy, hematuria. History provided by: Patient REVIEW OF SYSTEMS: A 10 system review of systems was performed with positives and pertinent negatives listed in the history of present illness. All other systems were reviewed and are negative. ALLERGIES: NKDA PHYSICAL EXAM: VITALS: Vitals are noted on the nurse's note and reviewed by myself. GENERAL: This is a 49-year-old female, in no acute distress, nondiaphoretic, well-developed well-nourished. SKIN: The skin was without rashes, erythema, edema, or bruising. There is no tenting of the skin. Capillary refill less than 2 seconds. HEAD: Normocephalic atraumatic. EARS: External auditory canals clear, tympanic membranes pearly hayes without erythema or effusion bilaterally. No hemotympanum. Negative bray sign EYES: Pupils equal round and reactive to light and accommodation. Conjunctivae without injection, sclerae without icterus. Extraocular movements intact. NOSE: Patent, turbinates without inflammation or discharge. No sinus tenderness. MOUTH: Mucous membranes moist. Tonsils are not enlarged. Pharynx without erythema or exudate. Uvula midline. Airway patent. Tongue does not deviate. NECK: Supple without nuchal rigidity. No lymphadenopathy. Cervical spine is nontender. No JVD. HEART: Regular rate and rhythm without murmurs gallops or rubs. LUNGS: Clear to auscultation bilaterally without wheezes, rales or rhonchi. No retractions or accessory muscle use. ABDOMEN: Positive bowel sounds x 4. Soft, nontender, without masses or organomegaly. Jiménez sign negative. No guarding or rebound tenderness. MUSCULOSKELETAL: No muscle atrophy, erythema, or edema noted. Full range of motion without joint tenderness in all extremities. No tenderness to palpation. Normal gait. Strength 5/5 throughout. NEURO: Patient was alert and oriented to person place and time. No focal neurological deficits. An order was placed for continuous panelbeater. The monitor showed a sinus tachycardia at a ventricular rate of 112 bpm, per my interpretation. EKG was reviewed by myself and found to be sinus tachycardia at a rate of 112 beats per minute and per my interpretation reveals no ST elevation or depression. No T wave inversion. No prior EKG available for comparison. Imaging as interpreted by myself and the radiologist revealed no acute findings, incidental lung nodule was noted on CT scan, with radiologist interpretation as above. I agree with the radiologist's findings as based upon my independent interpretation. EMERGENCY DEPARTMENT COURSE: The patient was seen and evaluated as above. The patient presents to the emergency department for generalized illness for about a day. Symptoms started last night. She has not tried any medication for her symptoms. She is complaining of some chest pain, worse with deep breathing and coughing. She is reporting generalized body aches. IV access was obtained, labs are drawn. The patient was medicated with IV Toradol, benzonatate, and albuterol inhaler. Labs reviewed. Per my interpretation, there was no leukocytosis. There was an anemia with hemoglobin of 9.5. No thrombocytopenia. Renal, hepatic function and electrolytes without significant abnormality. Procalcitonin less than 0.02. hCG negative. Urinalysis with greater than 20,000 epithelial cells and 4+ bacteria. No leukocyte esterase or nitrates. Suspect this to be contaminated. Respiratory bio fire testing was negative. Chest x-ray was completed and was reviewed by myself radiologist as noted. No evidence of infiltrate. I was notified by ED RN that the patient has become hypoxic in the high 80s on room air and despite deep breathing. The patient was feeling increased fatigue associated with this. We did elect to perform CT angiogram to evaluate for possible additional pulmonary cause. CT angiogram was completed and reviewed by myself radiologist as noted. No evidence of PE. Incidental finding of a pulmonary nodule was identified. I discussed the case with my attending physician. Patient did begin to desat to 86% on room air with a good waveform with attempts at weaning off of the oxygen therapy. I discussed findings with the patient at bedside. Rectal examination was completed given anemia and hypoxia with the ED RN at the bedside as a plastic welder. This was negative for occult blood. Given the persistent hypoxia and inability to wean the patient off of oxygen without becoming more hypoxic, we did recommend inpatient care. The patient was agreeable. I discussed the case with Jeanette Marin PA-C with [facility] Hospitalist group. She did agree to evaluate the patient for admission. The patient will be admitted under Dr. Mcintosh's service. Please see hospitalist dictation regarding ongoing management care of this patient. Case was discussed with the attending physician. I attest that I have personally reviewed the patient medication list. I attest that I have reviewed the patient's blood pressure and it was found to be normal GCS: 15 In the evaluation and treatment of this patient the following differential diagnoses were entertained: Viral syndrome, strep pharyngitis, tonsillitis, influenza, Covid-19, mononucleosis, retropharyngeal abscess, peritonsillar abscess, otitis media, sinusitis, bronchitis, pneumonia, as well as other pathologies. The chart was completed utilizing [employer] Speech voice recognition software. Grammatical errors, random word insertions, pronoun errors, and incomplete sentences are an occasional consequence of this system due to software limitations, ambient noise, and hardware issues. Any formal questions or concerns about the content, text, or information contained within the body of this dictation should be directly addressed to the provider for clarification. Past Med/Surg History Problem List (Updated 09/07/24 @ 14:27 by Sudha Vallecillo PA-C) Lung nodule (Acute) Anemia (Acute) Flu-like symptoms (Acute) Hypoxia (Acute) Carpal tunnel syndrome of left wrist On depo medroxyprogesterone acetate for contraception Headache Medical History No significant past medical history Surgical History History of section, low transverse Family History Denies family history of Colon cancer Ovarian cancer Prostate cancer Myocardial infarction Breast cancer Social History Smoking Status: Never smoker Second Hand Exposure: No; Do You Dip or Chew Tobacco: No; Hx Alcohol Use: No Hx Substance Use: No Visual Impairment: No Limitations Hearing Ability: Normal Division Field Inspector Required: No marital status: Single Current Living Situation: Family current occupational status: employed current occupation: Student Education Specialist Feels Safe at Home: Yes Childhood Exposure to Second-Hand Smoke: Yes Diet: regular Dental Care, Regularly: Yes Physical Activity Frequency: 1-2 Times per Week Seatbelt Use: always Sunscreen Use: Yes Assistive Devices: Glasses Allergies Allergies Allergy/AdvReac Type Severity Reaction Status Date / Time No Known Allergies Allergy Unverified 09/07/24 10:27 Home Meds Home Medications Medication Instructions Recorded Confirmed No Known Home Medications 11/13/21 09/07/24 Results & Data (ED) Vital Signs Vital Signs - 24 hr 09/07/24 07:20 09/07/24 07:36 09/07/24 07:36 Temperature 36.9 C Temperature Source Temporal Artery Scan Pulse Rate 116 H 125 H Pulse Rate [Apical] 125 H Pulse Rate from SpO2 Sensor Pulse Rhythm Regular Pulse Rhythm [Apical] Regular Pulse Strength [Apical] Normal Respiratory Rate 20 22 25 H Respiratory Effort / Characteristics Non-Labored Spontaneous Non-Labored Spontaneous Respiratory Depth Normal Normal Respiratory Pattern Regular Regular Blood Pressure 116/67 Blood Pressure [Left Arm] 120/83 Blood Pressure Mean 83 Blood Pressure Mean [Left Arm] 95 Blood Pressure Position [Left Arm] Semi-fowlers Pulse Oximetry 100 98 98 Oxygen Delivery Method Room Air Room Air Room Air Oxygen Flow Rate Sepsis Recent Fever Within 48 Hours No Sepsis New/Unexplained Change in Mental Status N/A Sepsis Action Taken by Nursing No Action Required 09/07/24 07:44 09/07/24 08:00 09/07/24 08:06 Temperature Temperature Source Pulse Rate 112 H 107 H 110 H Pulse Rate [Apical] Pulse Rate from SpO2 Sensor 110 H Pulse Rhythm Pulse Rhythm [Apical] Pulse Strength [Apical] Respiratory Rate 22 18 Respiratory Effort / Characteristics Respiratory Depth Respiratory Pattern Blood Pressure 122/85 122/85 Blood Pressure [Left Arm] Blood Pressure Mean 102 97 Blood Pressure Mean [Left Arm] Blood Pressure Position [Left Arm] Pulse Oximetry 91 93 Oxygen Delivery Method Room Air Oxygen Flow Rate Sepsis Recent Fever Within 48 Hours Sepsis New/Unexplained Change in Mental Status Sepsis Action Taken by Nursing 09/07/24 08:36 09/07/24 09:30 09/07/24 09:40 Temperature Temperature Source Pulse Rate 101 H 100 H 106 H Pulse Rate [Apical] Pulse Rate from SpO2 Sensor 101 H 101 H Pulse Rhythm Pulse Rhythm [Apical] Pulse Strength [Apical] Respiratory Rate 18 23 20 Respiratory Effort / Characteristics Respiratory Depth Respiratory Pattern Blood Pressure 121/78 120/79 110/79 Blood Pressure [Left Arm] Blood Pressure Mean 92 92 89 Blood Pressure Mean [Left Arm] Blood Pressure Position [Left Arm] Pulse Oximetry 94 89 L 94 Oxygen Delivery Method Nasal Cannula Room Air Nasal Cannula Oxygen Flow Rate 1 1.5 Sepsis Recent Fever Within 48 Hours Sepsis New/Unexplained Change in Mental Status Sepsis Action Taken by Nursing 09/07/24 10:00 09/07/24 10:36 09/07/24 11:33 Temperature Temperature Source Pulse Rate 98 H 91 H Pulse Rate [Apical] Pulse Rate from SpO2 Sensor 99 H 90 93 H Pulse Rhythm Pulse Rhythm [Apical] Pulse Strength [Apical] Respiratory Rate 22 12 20 Respiratory Effort / Characteristics Respiratory Depth Respiratory Pattern Blood Pressure 112/74 106/76 Blood Pressure [Left Arm] Blood Pressure Mean 86 86 Blood Pressure Mean [Left Arm] Blood Pressure Position [Left Arm] Pulse Oximetry 95 96 93 Oxygen Delivery Method Nasal Cannula Nasal Cannula Room Air Oxygen Flow Rate 1.5 1.5 Sepsis Recent Fever Within 48 Hours Sepsis New/Unexplained Change in Mental Status Sepsis Action Taken by Nursing 09/07/24 11:34 09/07/24 11:54 09/07/24 12:03 Temperature Temperature Source Pulse Rate 96 H 90 Pulse Rate [Apical] Pulse Rate from SpO2 Sensor 95 H 90 Pulse Rhythm Pulse Rhythm [Apical] Pulse Strength [Apical] Respiratory Rate 20 19 Respiratory Effort / Characteristics Respiratory Depth Respiratory Pattern Blood Pressure 106/76 119/80 Blood Pressure [Left Arm] Blood Pressure Mean 91 93 Blood Pressure Mean [Left Arm] Blood Pressure Position [Left Arm] Pulse Oximetry 86 L 91 Oxygen Delivery Method Room Air Nasal Cannula Oxygen Flow Rate 4 Sepsis Recent Fever Within 48 Hours Sepsis New/Unexplained Change in Mental Status Sepsis Action Taken by Nursing Laboratory Data 09/07/24 07:50 09/07/24 07:50 Lab Results 09/07/24 09/07/24 09/07/24 Range/Units 07:30 07:50 09:25 WBC 8.05 (4.8-10.8) K/ul RBC 4.63 (4.20-5.40) M/uL Hgb 9.5 L (12.0-16.0) g/dl Hct 30.4 L (37.0-47.0) % MCV 65.7 L (80.0-100.0) fL MCH 20.5 L (25.0-34.0) pg MCHC 31.3 L (32.0-36.0) g/dL RDW Std Deviation 41.7 (36.4-46.3) fL RDW Coeff of Anurag 18.1 H (11.5-14.5) % Plt Count 346 (130-400) K/uL MPV 9.9 (9.4-12.4) fL Immature Gran % (Auto) 0.2 % Neut % (Auto) 76.8 % Lymph % (Auto) 12.7 % [place] % (Auto) 8.7 % Eos % (Auto) 0.9 % Baso % (Auto) 0.7 % Neut # (Auto) 6.18 (1.40-6.50) K/uL Lymph # (Auto) 1.02 L (1.20-3.40) K/uL [place] # (Auto) 0.70 H (0.11-0.59) K/uL Eos # (Auto) 0.07 (0.00-0.50) K/uL Baso # (Auto) 0.06 (0.00-0.20) K/uL Immature Gran # (Auto) 0.02 (0.01-0.20) K/uL Polychromasia 1+ Hypochromasia Present Target Cells 1+ Tear Drop Cells 1+ Ovalocytes 1+ PT 11.3 (9.0-12.0) Seconds INR 1.0 (0.9-1.1) APTT 23 (21-31) Seconds PTT Ratio 0.9 Sodium 133 L (136-145) mmol/L Potassium 4.2 (3.5-5.1) mmol/L Chloride 103 (98-107) mmol/L Carbon Dioxide 22 (21-32) mmol/L Anion Gap 8 (3-11) BUN 11 (6-23) mg/dl Creatinine 0.74 (0.6-1.2) mg/dl Est Cr Clr Drug Dosing 89.7 ml/min eGFR 98.50 BUN/Creatinine Ratio 14.9 (10-20) Glucose 98 (70-99(Fasting)) mg/dl Calcium 8.9 (8.6-10.3) mg/dl Magnesium 1.7 (1.7-2.4) mg/dl Iron TNP TIBC 494 H (250-450) mcg/dl Transferrin 353 (200-360) mg/dl Transferrin % Sat TNP Ferritin 5.8 L (8-388) ng/ml Total Bilirubin 0.5 (0.2-1.0) mg/dl AST 28 (13-39) U/L ALT 18 (7-52) U/L Alkaline Phosphatase 57 (34-104) U/L Troponin I High Sens 3.9 (0-14) pg/ml B-Natriuretic Peptide (0-100) pg/ml Total Protein 8.1 (6.0-8.3) gm/dl Albumin 4.1 (3.4-5.0) gm/dl Globulin 4.0 (2.5-4.0) gm/dl Albumin/Globulin Ratio 1.0 (0.9-2) Procalcitonin < 0.02 (0-0.5) ng/ml HCG, Qual Negative (Negative) Urine Color Yellow Urine Appearance Cloudy A (Clear) Urine pH 7.5 (4.5-7.5) Ur Specific [place] 1.028 (1.000-1.030) Urine Protein Negative (Negative) Urine Glucose (UA) Negative (Negative) Urine Ketones Negative (Negative) Urine Blood Negative (Negative) Urine Nitrite Negative (Negative) Urine Bilirubin Negative (Negative) Urine Urobilinogen Negative (Negative) Ur Leukocyte Esterase Negative (Negative) Urine WBC (Auto) 0-5 (0-5) /hpf Urine RBC (Auto) 0-2 (0-2) /hpf U Hyaline Cast (Auto) 0-2 (0-2) /lpf U Epithel Cells (Auto) >20 H (0-2) /hpf Urine Bacteria (Auto) 4+ H (None Seen) POC Stool Occult Blood (Negative) Adenovirus (PCR) Not Detected (NotDetected) B. pertussis DNA (PCR) Not Detected (NotDetected) B.parapertussis DNA PCR Not Detected (NotDetected) C. pneumoniae DNA (PCR) Not Detected (NotDetected) Coronavirus OC43 (PCR) Not Detected (NotDetected) Coronavirus HKU1 (PCR) Not Detected (NotDetected) Coronavirus 229E (PCR) Not Detected (NotDetected) SARS-CoV-2 (PCR) Not Detected (NotDetected) Coronavirus NL63 (PCR) Not Detected (NotDetected) Human Metapneumovir PCR Not Detected (NotDetected) Influenza Type A (PCR) Not Detected (NotDetected) Influenza Type B (PCR) Not Detected (NotDetected) M. pneumoniae (PCR) Not Detected (NotDetected) Parainfluenza 1 (PCR) Not Detected (NotDetected) Parainfluenza 2 (PCR) Not Detected (NotDetected) Parainfluenza 3 (PCR) Not Detected (NotDetected) Parainfluenza 4 (PCR) Not Detected (NotDetected) RSV (PCR) Not Detected (NotDetected) Entero/Rhino (PCR) Not Detected (NotDetected) 09/07/24 09/07/24 Range/Units 10:00 10:52 WBC (4.8-10.8) K/ul RBC (4.20-5.40) M/uL Hgb (12.0-16.0) g/dl Hct (37.0-47.0) % MCV (80.0-100.0) fL MCH (25.0-34.0) pg MCHC (32.0-36.0) g/dL RDW Std Deviation (36.4-46.3) fL RDW Coeff of Anurag (11.5-14.5) % Plt Count (130-400) K/uL MPV (9.4-12.4) fL Immature Gran % (Auto) % Neut % (Auto) % Lymph % (Auto) % [place] % (Auto) % Eos % (Auto) % Baso % (Auto) % Neut # (Auto) (1.40-6.50) K/uL Lymph # (Auto) (1.20-3.40) K/uL [place] # (Auto) (0.11-0.59) K/uL Eos # (Auto) (0.00-0.50) K/uL Baso # (Auto) (0.00-0.20) K/uL Immature Gran # (Auto) (0.01-0.20) K/uL Polychromasia Hypochromasia Target Cells Tear Drop Cells Ovalocytes PT (9.0-12.0) Seconds INR (0.9-1.1) APTT (21-31) Seconds PTT Ratio Sodium (136-145) mmol/L Potassium (3.5-5.1) mmol/L Chloride (98-107) mmol/L Carbon Dioxide (21-32) mmol/L Anion Gap (3-11) BUN (6-23) mg/dl Creatinine (0.6-1.2) mg/dl Est Cr Clr Drug Dosing ml/min eGFR BUN/Creatinine Ratio (10-20) Glucose (70-99(Fasting)) mg/dl Calcium (8.6-10.3) mg/dl Magnesium (1.7-2.4) mg/dl Iron TIBC (250-450) mcg/dl Transferrin (200-360) mg/dl Transferrin % Sat Ferritin (8-388) ng/ml Total Bilirubin (0.2-1.0) mg/dl AST (13-39) U/L ALT (7-52) U/L Alkaline Phosphatase (34-104) U/L Troponin I High Sens (0-14) pg/ml B-Natriuretic Peptide 70 (0-100) pg/ml Total Protein (6.0-8.3) gm/dl Albumin (3.4-5.0) gm/dl Globulin (2.5-4.0) gm/dl Albumin/Globulin Ratio (0.9-2) Procalcitonin (0-0.5) ng/ml HCG, Qual (Negative) Urine Color Urine Appearance (Clear) Urine pH (4.5-7.5) Ur Specific [place] (1.000-1.030) Urine Protein (Negative) Urine Glucose (UA) (Negative) Urine Ketones (Negative) Urine Blood (Negative) Urine Nitrite (Negative) Urine Bilirubin (Negative) Urine Urobilinogen (Negative) Ur Leukocyte Esterase (Negative) Urine WBC (Auto) (0-5) /hpf Urine RBC (Auto) (0-2) /hpf U Hyaline Cast (Auto) (0-2) /lpf U Epithel Cells (Auto) (0-2) /hpf Urine Bacteria (Auto) (None Seen) POC Stool Occult Blood Negative (Negative) Adenovirus (PCR) (NotDetected) B. pertussis DNA (PCR) (NotDetected) B.parapertussis DNA PCR (NotDetected) C. pneumoniae DNA (PCR) (NotDetected) Coronavirus OC43 (PCR) (NotDetected) Coronavirus HKU1 (PCR) (NotDetected) Coronavirus 229E (PCR) (NotDetected) SARS-CoV-2 (PCR) (NotDetected) Coronavirus NL63 (PCR) (NotDetected) Human Metapneumovir PCR (NotDetected) Influenza Type A (PCR) (NotDetected) Influenza Type B (PCR) (NotDetected) M. pneumoniae (PCR) (NotDetected) Parainfluenza 1 (PCR) (NotDetected) Parainfluenza 2 (PCR) (NotDetected) Parainfluenza 3 (PCR) (NotDetected) Parainfluenza 4 (PCR) (NotDetected) RSV (PCR) (NotDetected) Entero/Rhino (PCR) (NotDetected) Administered Medications Discontinued Medications Albuterol (Albuterol Hfa 8 Gm Inhaler) 2 puffs INH NOW ONE Stop: 09/07/24 07:42 Last Admin: 09/07/24 07:54 Dose: 2 puffs Documented By: Benzonatate (Benzonatate 100 Mg Capsule) 200 mg PO NOW ONE Stop: 09/07/24 07:42 Last Admin: 09/07/24 07:54 Dose: 200 mg Documented By: Guaifenesin (Guaifenesin 600 Mg Tabcr) 1,200 mg PO ONE STA Stop: 09/07/24 11:21 Last Admin: 09/07/24 11:28 Dose: 1,200 mg Documented By: Guanfacine HCl (Guanfacine Hcl 1 Mg Tab) 1 mg PO DAILY JOHN Stop: 10/07/24 11:14 Last Admin: 09/07/24 11:25 Dose: Not Given Documented By: Ioversol (Optiray 320 125ml) 120 ml IV ONCE ONE Stop: 09/07/24 09:06 Last Admin: 09/07/24 08:59 Dose: 120 ml Documented By: KRISTINE Ketorolac Tromethamine (Ketorolac Tromethamine 15 Mg/Ml Vial) 15 mg IV NOW STA Stop: 09/07/24 07:41 Last Admin: 09/07/24 07:54 Dose: 15 mg Documented By: Imaging Data Radiologist's Impression: Chest X-Ray 09/07/24 07:26 EXAM: XR chest 1V portable CLINICAL HISTORY: COUGH, CHILLS. TECHNIQUE: An X-ray image of the chest was obtained in 1 view: Frontal projection. COMPARISON: X-ray chest dated 10/26/2017. FINDINGS: Pulmonary Parenchyma: Lungs are clear bilaterally. No evidence of consolidation, collapse, or focal opacities. No pulmonary nodules are identified. No evidence of pleural effusion or pleural thickening. Heart and Mediastinum: Heart size and shape are normal. No mediastinal widening or masses. No hilar or mediastinal lymphadenopathy. Bony Thorax: Bony thorax appears intact without fractures or deformities. Soft Tissues: Soft tissues overlying the chest wall are unremarkable. IMPRESSION: No acute cardiopulmonary abnormalities are identified. No significant interval changes. Electronically signed by Vernon Fowler 09-07-2024 08:28 AM Chest CTA 09/07/24 08:44 CT angio chest PE protocol CT DOSE: 688.16 mGy.cm HISTORY: 49 years-old Female with hypoxia, chest pain, dyspnea, illness. Acute chest pain with hypoxia TECHNIQUE: Multiple CTA images of the chest were obtained after the intravenous administration of 120 ml Optiray. Coronal and sagittal MIPS were obtained from the axial data set and were submitted for review. All measurements were obtained according to NASCET criteria. A dose lowering technique was utilized adhering to the principles of ALARA. COMPARISON: Chest radiograph of same day FINDINGS: CTA: Heart is mildly enlarged. No pericardial effusion. Unremarkable thoracic aorta without significant atherosclerosis. No pulmonary emboli. Study is mildly motion degraded. CT CHEST: Unremarkable thyroid. Subcentimeter lymph nodes of the chest are likely benign. No pneumothorax, pleural effusion or pulmonary edema. No lobar airspace consolidation. Mild atelectasis with air trapping. Subpleural 4 mm solid nodule in the right middle lobe, image 92 series 5. Central airways appear patent with mild endobronchial secretions. No acute upper abdominal abnormality. The soft tissues are within normal limits. No acute fracture. IMPRESSION: 1. No pulmonary emboli identified. 2. No pleural effusion or airspace consolidation typical for pneumonia. 3. Low suspicion subpleural 4 mm nodule of the right middle lobe. In a low risk patient, no follow-up recommended. Please refer to below summary of Fleischner criteria recommendations for follow- up of incidental CT nodules (Lizz Augustin, Guidelines for management of small pulmonary nodules detected on CT scans: A statement from the Fleischner Society, Radiology 237: [phone].) SOLID NODULES Solitary nodule size: <6 mm * Low risk patients: no follow-up needed * high risk patients: optional CT at 12 months Note: newly detected indeterminate nodule in persons 35 years of age or older. * Low risk patients: minimal or absent history of smoking and/or other known risk factors * high risk patients: history of smoking or of other known risk factors (e.g. first degree relative with lung cancer, or exposure to asbestos, radon, uranium) * if a nodule up to 8 mm is partly solid or is ground glass further follow-up is required after 24 months to exclude possible slow growing adenocarcinoma (MAGY) The above report was generated using voice recognition software. It may contain grammatical, syntax or spelling errors. ACT 112: Negative or not required by law. The above report was generated using voice recognition software. It may contain grammatical, syntax or spelling errors. Electronically signed by: Kadeem Hermosillo M.D. 09/07/2024 9:34 AM Discharge Plan Visit Data Chief Complaint: Illness Stated Complaint: LIGHT HEADED, NAUSEA, CHEST PAIN, FATIGUE ED Provider: Liza Ramos ED Midlevel Provider: Sudha Vallecillo Discharge Problem: Hypoxia, Flu-like symptoms, Anemia, Lung nodule Patient Disposition: Admitted As Inpatient Discharge Instructions Interventions: ED Discharge Assessment Last Done: 09/07/24 14:02
[2024-09-07] MEDS: KETOROLAC TROMETHAMINE 15 MG/ML VIAL IV STA (07:54)
[2024-09-07] MEDS: BENZONATATE 100 MG CAPSULE PO ONE (07:54)
[2024-09-07] MEDS: ALBUTEROL HFA 8 GM INHALER INH ONE (07:54)
--- NOTE | 2024-09-07 08:28 | XRay Report ---
EXAM: XR chest 1V portable CLINICAL HISTORY: COUGH, CHILLS. TECHNIQUE: An X-ray image of the chest was obtained in 1 view: Frontal projection. COMPARISON: X-ray chest dated 10/26/2017. FINDINGS: Pulmonary Parenchyma: Lungs are clear bilaterally. No evidence of consolidation, collapse, or focal opacities. No pulmonary nodules are identified. No evidence of pleural effusion or pleural thickening. Heart and Mediastinum: Heart size and shape are normal. No mediastinal widening or masses. No hilar or mediastinal lymphadenopathy. Bony Thorax: Bony thorax appears intact without fractures or deformities. Soft Tissues: Soft tissues overlying the chest wall are unremarkable. IMPRESSION: No acute cardiopulmonary abnormalities are identified. No significant interval changes. Electronically signed by Vernon Fowler 09-07-2024 08:28 AM
[2024-09-07 08:32] LABS: Alanine Aminotransferase 18 U/L (7-52); Albumin Level 4.1 gm/dl (3.4-5.0); Alkaline Phosphatase 57 U/L (34-104); Anion Gap 8 (3-11); Aspartate Aminotransferase 28 U/L (13-39); BUN Creatinine Ratio 14.9 (10-20); Bilirubin,Total 0.5 mg/dl (0.2-1.0); Blood Urea Nitrogen 11 mg/dl (6-23); Calcium 8.9 mg/dl (8.6-10.3); Carbon Dioxide 22 mmol/L (21-32); Chloride 103 mmol/L (98-107); Creatinine Clr Calc Pharmacy 89.7 ml/min; Glucose 98 mg/dl (70-99(Fasting)); Magnesium 1.7 mg/dl (1.7-2.4); Potassium 4.2 mmol/L (3.5-5.1); Sodium 133 mmol/L (136-145); Total Protein 8.1 gm/dl (6.0-8.3)
[2024-09-07 08:38] LABS: Troponin I High Sensitivity 3.9 pg/ml (0-14)
[2024-09-07 08:40] LABS: Partial Thromboplastin Ratio 0.9; Partial Thromboplastin Time 23 Seconds (21-31); Pregnancy Test, Serum Negative (Negative); Prothrombin Time 11.3 Seconds (9.0-12.0)
[2024-09-07 08:41] LABS: Basophils # (auto) 0.06 K/uL (0.00-0.20); Basophils % (auto) 0.7 %; Eosinophils # (auto) 0.07 K/uL (0.00-0.50); Eosinophils % (auto) 0.9 %; Hematocrit (blood only) 30.4 % (37.0-47.0); Hemoglobin 9.5 g/dl (12.0-16.0); Immature Granulocytes # (auto) 0.02 K/uL (0.01-0.20); Immature Granulocytes % (auto) 0.2 %; Lymphocytes # (auto) 1.02 K/uL (1.20-3.40); Lymphocytes % (auto) 12.7 %; Mean Corpuscular Hemoglobin 20.5 pg (25.0-34.0); Mean Corpuscular Hgb Conc 31.3 g/dL (32.0-36.0); Mean Corpuscular Volume 65.7 fL (80.0-100.0); Monocytes % (auto) 8.7 %; Neutrophils # (auto) 6.18 K/uL (1.40-6.50); Neutrophils % (auto) 76.8 %; RDW Coefficient of Variation 18.1 % (11.5-14.5); RDW Standard Deviation 41.7 fL (36.4-46.3); Red Blood Count 4.63 M/uL (4.20-5.40); White Blood Count 8.05 K/ul (4.8-10.8)
[2024-09-07 08:57] LABS: Mean Platelet Volume 9.9 fL (9.4-12.4); Platelet Count 346 K/uL (130-400)
[2024-09-07 08:58] LABS: Adenovirus PCR Not Detected (NotDetected); Bordetella parapertussis PCR Not Detected (NotDetected); Bordetella pertussis PCR Not Detected (NotDetected); Chlamydia pneumoniae PCR Not Detected (NotDetected); Coronavirus 229E PCR Not Detected (NotDetected); Coronavirus CoV-2 (COVID19)PCR Not Detected (NotDetected); Coronavirus HKU1 PCR Not Detected (NotDetected); Coronavirus NL63 PCR Not Detected (NotDetected); Coronavirus OC43PCR Not Detected (NotDetected); Human Metapneumovirus PCR Not Detected (NotDetected); Influenza A PCR Not Detected (NotDetected); Influenza B PCR Not Detected (NotDetected); Mycoplasma pneumoniae PCR Not Detected (NotDetected); Parainfluenza Virus 1 PCR Not Detected (NotDetected); Parainfluenza Virus 2 PCR Not Detected (NotDetected); Parainfluenza Virus 3 PCR Not Detected (NotDetected); Parainfluenza Virus 4 PCR Not Detected (NotDetected); Respiratory Syncytial VirusPCR Not Detected (NotDetected); Rhinovirus/Enterovirus PCR Not Detected (NotDetected)
[2024-09-07] MEDS: OPTIRAY 320 125ml IV ONE (08:59)
[2024-09-07 09:00] LABS: Hypochromasia Present; Ovalocytes 1+; Polychromasia 1+; Target Cells 1+; Tear Drop Cells 1+
--- NOTE | 2024-09-07 09:36 | CT Scan Report ---
CT angio chest PE protocol CT DOSE: 688.16 mGy.cm HISTORY: 49 years-old Female with hypoxia, chest pain, dyspnea, illness. Acute chest pain with hypo hiram TECHNIQUE: Multiple CTA images of the chest were obtained after the intravenous administration of 120 ml Optiray. Coronal and sagittal MIPS were obtained from the axial data set and were submitted for review. All measurements were obtained according to NASCET criteria. A dose lowering technique was u tilized adhering to the principles of ALARA. COMPARISON: Chest radiograph of same day FINDINGS: CTA: Heart is mildly enlarged. No pericardial effusion. Unremarkable thoracic aorta without significant at herosclerosis. No pulmonary emboli. Study is mildly motion degraded. CT CHEST: Unremarkable thyroid. Subcentimeter lymph nodes of the chest are likely benign. No pneumothorax, pleu ral effusion or pulmonary edema. No lobar airspace consolidation. Mild atelectasis with air trapping. Subpleural 4 mm solid nodule in the right middle lobe, image 92 series 5. Central airways appear pat ent with mild endobronchial secretions. No acute upper abdominal abnormality. The soft tissues are within normal limits. No acute fracture. IMPRESSION: 1. No pulmonary emboli identified. 2. No pleural effusion or airspace consolidation typical for pneumonia. 3. Low suspicion subpleural 4 mm nodule of the right middle lobe. In a low risk patient, no follow-up recommended. Please refer to below summary of Fleischner criteria recommendations for follow-up of incidental CT n odules (Lizz Augustin, Guidelines for management of small pulmonary nodules detected on CT scans: A sta tement from the Fleischner Society, Radiology 237: [phone].) SOLID NODULES Solitary nodule size: <6 mm * Low risk patients: no follow-up needed * high risk patients: optional CT at 12 months Note: newly detected indeterminate nodule in persons 35 years of age or older. * Low risk patients: minimal or absent history of smoking and/or other known risk factors * high risk patients: history of smoking or of other known risk factors (e.g. first degree relative with lung cancer, or exposure to asbestos, radon, uranium) * if a nodule up to 8 mm is partly solid or is ground glass further follow-up is required after 24 m onths to exclude possible slow growing adenocarcinoma (MAGY) The above report was generated using voice recognition software. It may contain grammatical, syntax o r spelling errors. ACT 112: Negative or not required by law. The above report was generated using voice recognition software. It may contain grammatical, syntax o r spelling errors. Electronically signed by: Kadeem Hermosillo M.D. 09/07/2024 9:34 AM
[2024-09-07 09:47] LABS: Appearance Urine Cloudy (Clear); Bacteria Urine Automated 4+ (None Seen); Bilirubin Urine Negative (Negative); Blood Urine Negative (Negative); Cast Urine Automated 0-2 /lpf (0-2); Color Urine Yellow; Epithelial Cell Urine Auto >20 /hpf (0-2); Glucose Urine UA Negative (Negative); Ketones Urine Negative (Negative); Leukocyte Esterase Urine Negative (Negative); Nitrite Urine Negative (Negative); Protein Urine Negative (Negative); RBC Urine Automated 0-2 /hpf (0-2); Specific Gravity Urine 1.028 (1.000-1.030); Urobilinogen Urine Negative (Negative); WBC Urine Automated 0-5 /hpf (0-5); pH Urine 7.5 (4.5-7.5)
--- NOTE | 2024-09-07 10:41 | History & Physical Report ---
Date of Service September 07, 2024 Assessment & Plan (1) Hypoxia: Plan: 85% on RA (with forehead oximetry reporting) -> 3 L NC Original oxygen recordings were with pulse ox over patient's acrylic nails. Place O2 rater on patient's forehead and trending between 85 to 89% on RA. Was then placed on 3 L via nasal cannula with stats trending in low 90s. 2/2 Upper respiratory infection vs anemia(unlikely) vs undiagnosed sleep apnea - CXR and CTA negative for acute findings - no leukocytosis, no left shift, afebrile, mildly tachycardic - denies CP, EKG showing no ST changes - biofire, procal, BNP negative - wean O2 as tolerated - incentive spirometry - continue Tylenol prn and Mucinex - will add sputum culture - on precautions to have isolation room with URI and hypoxia - overnight pulse oximetry Patient stated that she felt her O2 levels were dropping when she fell asleep, stated she does have a history of snoring with no sleep apnea workup. Would benefit from sleep study in outpatient setting. (2) Flu-like symptoms: Plan: see above (3) Anemia: Plan: appears patient has chronic microcytic hypochromic anemia Hgb currently 9.5, HCT 30.4 - 1 episode of bright red blood in stool approximately 1 month ago - occult stool negative - iron panel compromised due to hemolysis -> repeat ordered - follow up with PCP for further workup - would consider colonoscopy and endoscopy in outpt setting (4) Lung nodule: Plan: CTA showing low suspicion for 4 mm nodule of right middle lobe - <6 mm, if low risk no follow-up needed, if high risk optional CT in 12 months - Patient has no significant pulmonary history, denies smoking history - Arrange follow-up with PCP (5) Microcytic anemia: Plan: Ferritin, transferrin saturations Recommend referral for EGD/colonscopy as outpatient Plan VTE ppx: SCDs, Defer chemical given anemia and likely to discharge 09/08 if hypoxia resolves; can consider chemical PPx if long-term stay Diet: regular Code status: full Dispo: med surg Admission and Anticipated Discharge Date Admission Date: 09/07/24 History of Present Illness Chief Complaint: illness Primary Care Provider: Wendy Norman MD Patient is a 49-year-old female with no past medical history. She presents today due to cough, congestion, rhinorrhea, body aches, chills. She was found to be hypoxic 89% on room air, currently on 1.5 L O2 via nasal cannula. Patient was seen at bedside, she stated that she has symptoms that began last night have a headache, chills, dizziness, nausea, rhinorrhea, body aches, mild cough with some sputum production. Her son was sick last week but the symptoms were very mild and have since resolved. She has no other sick contacts that she knows of. She stated that she also has felt fatigued. She stated that she felt slightly more fatigued with oxygen off. she denies past history of COPD or asthma. She stated that she was told she has anemia before and seen in the ER. She does have a PCP but does not have close follow-up. She did state that she had 1 episode of bright red blood in her stool about 1 month ago, only 1 episode. She denies chronic dizziness or fatigue. Patient denies vision changes, dyspnea, chest pain, abdominal pain, vomiting, diarrhea, constipation, edema, numbness, tingling. She has no past smoking or alcohol use history. She denies past history of cancer, DM, or previous VTE. She does not use oxygen at baseline. She takes no home medications. She wishes to be full code at this time. Noted that previous oxygen records were with with patient's acrylic nails; placed pulse ox on patient's forehead and O2 stats were trending between 85 to 88%. Was placed on 3 L O2 via nasal cannula and now trending in low 90s. Noted that her oxygen Falling when she was dozing off to sleep. Allergies Allergy/AdvReac Type Severity Reaction Status Date / Time No Known Allergies Allergy Unverified 09/07/24 10:27 Home Medications Medication Instructions Recorded Confirmed Type No Known Home Medications 11/13/21 09/07/24 History Past Med/Surg History Problem List (Updated 09/08/24 @ 07:12 by Jerome Mcintosh MD) Microcytic anemia Lung nodule (Acute) Anemia (Acute) Flu-like symptoms (Acute) Hypoxia (Acute) Carpal tunnel syndrome of left wrist On depo medroxyprogesterone acetate for contraception Headache Medical History No significant past medical history Surgical History History of section, low transverse Family History Denies family history of Colon cancer Ovarian cancer Prostate cancer Myocardial infarction Breast cancer Social History Smoking Status: Never smoker Second Hand Exposure: No; Do You Dip or Chew Tobacco: No; Hx Alcohol Use: No Hx Substance Use: No Communication Ability: Effective Visual Impairment: No Limitations Hearing Ability: Normal Supervisor Curing Room Required: No marital status: Single Current Living Situation: Family current occupational status: employed current occupation: Supervisor Tubing Feels Safe at Home: Yes Safety Concerns: Feels Safe At This Time Childhood Exposure to Second-Hand Smoke: Yes Diet: regular Dental Care, Regularly: Yes Physical Activity Frequency: 1-2 Times per Week Seatbelt Use: always Sunscreen Use: Yes Assistive Devices: Glasses and Hospital Bed Review of Systems Review of Systems: see HPI Physical Exam Physical Exam: The patient is awake, alert and oriented 3, well developed and well nourished, normocephalic and atraumatic, in no acute distress. Non-toxic appearing. HEENT- EOMI, mucous membranes moist. Hearing grossly intact. Heart-normal S1 and S2. No murmurs, rubs or gallops. Lungs-clear bilaterally, no respiratory distress, no accessory muscle use. Abdomen-normal bowel sounds and soft. No ascites noted. Non-tender. Extremities- no clubbing, cyanosis, or edema. Rheumatologic-normal range of motion. Psychiatric-normal affect. Results & Data Results & Data Vital Signs (Past 12 Hours) Vital Signs Temp Pulse Pulse Resp BP BP Pulse Ox 09/07/24 10:00 98 H 22 112/74 95 09/07/24 09:40 106 H 20 110/79 94 09/07/24 09:30 100 H 23 120/79 89 L 09/07/24 08:36 101 H 18 121/78 94 09/07/24 08:06 110 H 18 122/85 93 09/07/24 08:00 107 H 22 122/85 91 09/07/24 07:44 112 H 09/07/24 07:36 125 H 25 H 98 09/07/24 07:36 125 H 22 120/83 98 09/07/24 07:20 36.9 C 116 H 20 116/67 100 O2 Del Method O2 Flow Rate 09/07/24 10:00 Nasal Cannula 1.5 09/07/24 09:40 Nasal Cannula 1.5 09/07/24 09:30 Room Air 09/07/24 08:36 Nasal Cannula 1 09/07/24 08:06 Room Air 09/07/24 08:00 09/07/24 07:44 09/07/24 07:36 Room Air 09/07/24 07:36 Room Air 09/07/24 07:20 Room Air Laboratory Results Reviewed CBC, CMP, PT INR, troponin, BNP, Pro-Osman, hCG, UA UA showing >20 epithelial cells, 4+ bacteria suspect likely contamination although culture pending Diagnostic Findings reviewed CXR and CTA Medications Administered ED course: Toradol, Tessalon Perles, albuterol Hfa ECG Additional Comments: sinus tachycardia, HR 112 no T wave abnormalities or ST changes Code Status & VTE Plan Code Status full code VTE Prophylaxis Plan VTE Prophylaxis will be ordered: Yes Supervising Physician Co-Signing Physician Notes I personally saw and examined the patient. I independently reviewed the labs, EKG, imaging, problem list, medication list, past medical history and family history. I verified all carter points and agree with Jeanette Marin PA-C with the following exceptions and/or additions: 49 year old female presents to the ER with shortness of breath and flu-like symptoms. Hypoxic in the ER mainly with falling asleep but also on exertion. No known AARON. Also with microcytic anemia with no prior colonoscopy. Occasional heartburn but none currently. O/E HS RRR, no murmurs, Chest CTAB, Abdo SNT A/P Hypoxia - suspect underlying AARON in setting of URI. Overnight pulse oximetry to see if she qualifies for oxygen at home. Consider referral for sleep study as outpatient. URI - sputum culture, supportive care, incentive spirometer, flutter valve Microcytic anemia - transferrin sats + ferritin. Highly recommend referral for EGD and colonoscopy although she appears resistant to this I suspect the more providers recommend this the more likely she is to do it. PG Care Time/CCT Total # of Minutes Spent Total Time Spent with Patient: Total time spent is greater than 50% in coordination of care (as documented) at patient's floor/unit and/or counseling patient: Coding Level of Care Code 53569 INT INP/OBS CARE 2MIN Diagnoses Hypoxia R09.02 Flu-like symptoms R68.89 Anemia D64.9 Lung nodule R91.1 Microcytic anemia D50.9
[2024-09-07] MEDS: guanFACINE HCL 1 MG TAB PO SCH (11:25)
[2024-09-07] MEDS: guaiFENesin 600 MG TABCR PO STA (11:28)
[2024-09-07 12:10] LABS: Total Iron Binding Cap Calc 494 mcg/dl (250-450); Transferrin 353 mg/dl (200-360)
[2024-09-07 12:25] LABS: Ferritin 5.8 ng/ml (8-388)
[2024-09-07] MEDS ORDERED: ONDANSETRON INJ 2 MG/ML 2 ML VIAL IV PRN (14:22)
[2024-09-07] MEDS: ACETAMINOPHEN 325 MG TAB PO PRN (15:02)
[2024-09-07 20:21] VITALS: RESP 18
[2024-09-07] MEDS: guaiFENesin 600 MG TABCR PO SCH (21:03)
[2024-09-08 06:13] LABS: Basophils # (auto) 0.03 K/uL (0.00-0.20); Basophils % (auto) 0.6 %; Eosinophils # (auto) 0.05 K/uL (0.00-0.50); Hematocrit (blood only) 28.3 % (37.0-47.0); Hemoglobin 8.6 g/dl (12.0-16.0); Immature Granulocytes # (auto) 0.02 K/uL (0.01-0.20); Immature Granulocytes % (auto) 0.4 %; Lymphocytes # (auto) 1.48 K/uL (1.20-3.40); Lymphocytes % (auto) 30.1 %; Mean Corpuscular Hgb Conc 30.4 g/dL (32.0-36.0); Monocytes # (auto) 0.69 K/uL (0.11-0.59); Neutrophils # (auto) 2.65 K/uL (1.40-6.50); Neutrophils % (auto) 53.9 %; RDW Coefficient of Variation 18.1 % (11.5-14.5); RDW Standard Deviation 42.4 fL (36.4-46.3); Red Blood Count 4.29 M/uL (4.20-5.40); Reticulocyte % 1.23 % (0.50-2.00); White Blood Count 4.92 K/ul (4.8-10.8)
[2024-09-08 06:38] LABS: Anion Gap 7 (3-11); BUN Creatinine Ratio 15.9 (10-20); Blood Urea Nitrogen 11 mg/dl (6-23); Calcium 8.4 mg/dl (8.6-10.3); Carbon Dioxide 23 mmol/L (21-32); Chloride 104 mmol/L (98-107); Creatinine Clr Calc Pharmacy 97.8 ml/min; Glucose 95 mg/dl (70-99(Fasting)); Iron < 10 mcg/dl (35-150); Sodium 134 mmol/L (136-145); Total Iron Binding Cap Calc 419 mcg/dl (250-450); Transferrin 299 mg/dl (200-360)
[2024-09-08 06:49] LABS: Mean Platelet Volume 9.9 fL (9.4-12.4); Platelet Count 294 K/uL (130-400)
[2024-09-08 07:15] LABS: Hypochromasia Present; Microcytosis Present
[2024-09-08 07:52] VITALS: BP 96/62; PULSE 82; TEMP 97.9; O2SAT 100
--- NOTE | 2024-09-08 12:19 | Discharge Summary ---
Date of Service September 08, 2024 Admission HPI Per Admitting Provider Patient is a 49-year-old female with no past medical history. She presents today due to cough, congestion, rhinorrhea, body aches, chills. She was found to be hypoxic 89% on room air, currently on 1.5 L O2 via nasal cannula. Patient was seen at bedside, she stated that she has symptoms that began last night have a headache, chills, dizziness, nausea, rhinorrhea, body aches, mild cough with some sputum production. Her son was sick last week but the symptoms were very mild and have since resolved. She has no other sick contacts that she knows of. She stated that she also has felt fatigued. She stated that she felt slightly more fatigued with oxygen off. she denies past history of COPD or asthma. She stated that she was told she has anemia before and seen in the ER. She does have a PCP but does not have close follow-up. She did state that she had 1 episode of bright red blood in her stool about 1 month ago, only 1 episode. She denies chronic dizziness or fatigue. Patient denies vision changes, dyspnea, chest pain, abdominal pain, vomiting, diarrhea, constipation, edema, numbness, tingling. She has no past smoking or alcohol use history. She denies past history of cancer, DM, or previous VTE. She does not use oxygen at baseline. She takes no home medications. She wishes to be full code at this time. Noted that previous oxygen records were with with patient's acrylic nails; placed pulse ox on patient's forehead and O2 stats were trending between 85 to 88%. Was placed on 3 L O2 via nasal cannula and now trending in low 90s. Noted that her oxygen Falling when she was dozing off to sleep. Admission Exam Per Admitting Provider PHYSICAL EXAM: . GENERAL: This is a 49-year-old female, in no acute distress, nondiaphoretic, well-developed well-nourished. SKIN: The skin was without rashes, erythema, edema, or bruising. There is no tenting of the skin. Capillary refill less than 2 seconds. HEAD: Normocephalic atraumatic. EARS: External auditory canals clear, tympanic membranes pearly hayes without erythema or effusion bilaterally. No hemotympanum. Negative bray sign EYES: Pupils equal round and reactive to light and accommodation. Conjunctivae without injection, sclerae without icterus. Extraocular movements intact. NOSE: Patent, turbinates without inflammation or discharge. No sinus tenderness. MOUTH: Mucous membranes moist. Tonsils are not enlarged. Pharynx without erythema or exudate. Uvula midline. Airway patent. Tongue does not deviate. NECK: Supple without nuchal rigidity. No lymphadenopathy. Cervical spine is nontender. No JVD. HEART: Regular rate and rhythm without murmurs gallops or rubs. LUNGS: Clear to auscultation bilaterally without wheezes, rales or rhonchi. No retractions or accessory muscle use. ABDOMEN: Positive bowel sounds x 4. Soft, nontender, without masses or organomegaly. Jiménez sign negative. No guarding or rebound tenderness. MUSCULOSKELETAL: No muscle atrophy, erythema, or edema noted. Full range of motion without joint tenderness in all extremities. No tenderness to palpation. Normal gait. Strength 5/5 throughout. NEURO: Patient was alert and oriented to person place and time. No focal neurological deficits. Principal Diagnosis 1. Viral URI w/ Transient Hypoxia Discharge Exam Constitutional: WD/WN, vitals as above Eyes: PERRL, conjunctivae normal, anicteric sclerae Respiratory: normal respiratory effort, lungs clear to auscultation Cardiovascular: RRR, no murmur, no edema Gastrointestinal (Abdomen): normal bowel sounds, soft, nontender, no hepatosplenomegaly Musculoskeletal: no cyanosis or clubbing, extremities motor strength 5/5 Discharge Data Allergies Allergy/AdvReac Type Severity Reaction Status Date / Time No Known Allergies Allergy Unverified 09/07/24 10:27 Consultations 09/07/24 10:53 ED Decision to Admit Stat Ordered Studies 09/07/24 08:44 CT angio chest PE protocol Stat Hospital Course (1) Microcytic anemia: (2) Lung nodule: (3) Upper respiratory infection: Plan (1) Hypoxia: Plan: - Her oxygen saturation is normal in RA now. - Testing for swab was negative for flu or covid, but suspect hypoxia is due to viral illness. - Continue supportive measures at home. - Take 64 ounce of fluid daily. - Continue Tylenol and Mucinex at home -Come to Emergency if hypoxia returns for further evaluation (2)Upper respiratory infection - CXR and CTA negative for acute findings - no leukocytosis, no left shift, afebrile, mildly tachycardic - denies CP, EKG showing no ST changes - biofire, procal, BNP negative -Continue Tylenol and Mucinex BID at home. -Continue supportive measures at home. -Come to Emergency if hypoxia returns. (3) Microcytic Hypochromic Anemia: Plan: -appears patient has chronic microcytic hypochromic anemia -Hgb 9.5>8.6 - 1 episode of bright red blood in stool approximately 1 month ago - occult stool negative - She usually has heavy blood loss during her menstrual cycle. Her last cycle was on Aug 23 and was of normal duration. Her anemia may be due to blood loss during menstruation. - Take Ferrous Sulphate 325mg PO every alternate days. - Given her age, need further evaluation with Colonoscopy. -Schedule for colonoscopy within 1 month - Follow up with PCP for further workup (4) Lung nodule: Plan: -CTA showing low suspicion for 4 mm nodule of right middle lobe - <6 mm, if low risk no follow-up needed, if high risk optional CT in 12 months - Patient has no significant pulmonary history, denies smoking history - Arrange follow-up with PCP Total Time Total Time Spent Total Time Spent (In Minutes): <30 Discharge Plan Discharge Items Patient Disposition: Home - Self-Care Reason For Visit: HYPOXIA Discharge Diagnosis: Viral URI w/ Transient Hypoxia Activity: Per Instructions section Non-emergency contact: Primary Care Provider Call non-emergency contact if: your symptoms worsen Follow-up/Referrals: Wendy Norman MD [Primary Care Provider] - 09/21/24 10:20 am Diet: Regular Addtl Attending Provider Instructions: You presented to the hospital with concern for low oxygen levels as well as upper reparatory symptoms. You received supplemental oxygen briefly and remained stable on room air throughout the night. Testing inpatient did not reveal flu or COVID-19 infection, but we do still suspect that your brief episode of low oxygen was related to a viral infection. Please continue supportive measures at home, continue to hydrate with 64 ounces of water daily. You may also continue taking Mucinex twice daily as needed for congestion/cough. If hypoxia returns, come back into the ED for further evaluation. During your admission, it was noted that your hemoglobin levels are low at 8.6 (normal > 12). There was no blood noted in your stool sample during admission and there were not signs of active bleeding. It is important that you continue to follow closely with your PCP regarding the anemia. We started you on Iron 325 mg by mouth every other day while you were admitted, please continue to take this over the counter upon discharge. It is important that you schedule a colonoscopy within the next month to further evaluate for causes of the anemia. Please follow up with your PCP within 1 week of discharge. No additional changes were made to your home medications. Pending Studies at Discharge: No Stand-Alone Forms: [facility] [employer], Work/School Release, Smoking Cessation Medications and DC Order Prescriptions: New ferrous sulfate 325 mg (65 mg iron) Tablet,Delayed Release (Dr/Ec) 325 mg PO QAM 30 Days Qty: 30 0RF Rx Instructions: Every other day. Discharge Orders: Discharge Order (Routine); Ordered 09/08/24 Ordered By: Concha Mauro/Other Patient Handouts: ED Anemia, Iron-Deficiency (Adult) Admission Data Admit Date/Time: 09/07/24 12:10 Attending Provider: Horacio Samuels Admit Provider: Jerome Mcintosh Primary Care Provider: Wendy Norman Other Providers: Jerome Mcintosh Other Interventions: Discharge Summary Assessment (RN) Last Done: 09/08/24 12:14 Supervising Physician Co-Signing Physician Notes I personally examined the patient and verified all carter points of history and exam, discussed case, and agree with decision making with Dr Cosby feeling better breathing ok feels up to going home, heavy periods vitals noted nad heent nc at mmm breathing unlabored 100% on RA (and overnight desat <89% on pulse ox for 8 seconds total) no accessory muscles no conversational dyspnea hypoxia - viral illness - resolving. safe/stable for home. red flags outlined, anticipated course of getting better outlined microcytic anemia- likely from heavy periods. discussed OCP vs IUD vs procedures to help with bleeding - to discuss further w PCP; Fe supplementation. repeat CBC periodically (would probably check in 1-2wks as outpt next; sooner if sx); discussed that while it's likely from menstrual losses, obligated to consider colon cancer as cause as well - asked to get her set up for colo. safe/stable for home time/rest for viral illness PO Fe, CBC 1-2wks, discussions w PCP on management of heavy periods, referral for colo for microcytic anemia Resident Activity Tracking Resident Involvement: Resident Care Provided Care Provided: Adult Hospital Medicine
--- NOTE | 2024-09-08 14:01 | Billing Data ---
Date of Service September 08, 2024 Coding Level of Care Code 45259 IN/OBS DISCH 30 MIN/LESS
[2024-09-09] MEDS ORDERED: FERROUS SULFATE 325 MG TAB PO SCH (09:00)
--- NOTE | 2024-09-09 21:48 | Electrocardiogram Report ---
Test Reason : Blood Pressure : */* mmHG Vent. Rate : 112 BPM Atrial Rate : 112 BPM P-R Int : 144 ms QRS Dur : 76 ms QT Int : 308 ms P-R-T Axes : 13 -30 104 degrees QTcB Int : 420 ms Sinus tachycardia Left axis deviation Minimal voltage criteria for LVH, may be normal variant ( R in aVL ) Nonspecific ST and T wave abnormality Poor R wave progression, consider anterior NH vs. lead placement vs. LVH Abnormal ECG When compared with ECG of 26-Oct-2017 08:46, Vent. rate has increased by 59 bpm T wave inversion no longer evident in Inferior leads T wave inversion now evident in Lateral leads Confirmed by Demar Hercules ([id number]) on 09/09/2024 9:48:14 PM Referred By: REFERRED SELF Confirmed By: Demar Hercules
== END 2024-09-08 13:21 | disposition home or self-care (01) | DRG 153 ==
LOC: ED 07:15 → 3E 12:10 → SUATTDRO 12:10 → INTOOBSV 12:10 → 3E 14:02